=== PATIENT | male | born 1935 | race Caucasian/White ===

== ENCOUNTER 2016-11-19 18:57 | Inpatient (IN) | payer OTHER, MEDICARE, BC ==
[~2016-11-19 18:57] MED LIST: 1-ME1LIQ PO; ALBU6.7H INH; ASPI81TA82 PO; ATOR80TA41 PO; CEPH500T PO; DULE100A PO; FLUN25I; HUMALOGP SC; HYDR-2768 PO; LANTUS2P SC; LANTUSP SQ; LISI40TA PO; METO25TA6 PO; NITR.4 SL; OMEP20CA5 PO; XALA0.00 EACH EYE
[2016-11-19 18:59] VITALS: BP 135/69; PULSE 97; RESP 16; TEMP 98.8; O2SAT 96
--- NOTE | 2016-11-19 19:08 | PD ---
Physical Exam Date Seen by Provider: Nov 19, 2016 Time Seen by Provider: 19:07 Data Data Last Documented VS Vital Signs Date Time Temp Pulse Resp B/P Pulse Ox O2 Delivery O2 Flow Rate FiO2 11/19/16 18:59 98.8 97 16 135/69 96 Room Air [facility] Supervised Visit with PASCUAL: No Narrative Course 81 YO M with complaint of CP since ~7am. Took nitroglycerin x 3 1 hour ago with relief. HX of cardiac stent, "bad valve." Vitals reviewed. Awaiting bed placement. Dorothy Garcia Nov 19, 2016 19:08
[2016-11-19] MEDS ORDERED: ASPI-110 PO (19:29)
[2016-11-19] MEDS ORDERED: HUMALOG SQ (19:29)
[2016-11-19] MEDS ORDERED: NITR50VP (19:29)
[2016-11-19] MEDS ORDERED: LANTUS2P SQ ×2 (19:29)
[2016-11-19] MEDS ORDERED: LISI40TA PO (19:29)
[2016-11-19] MEDS ORDERED: ATOR1TAB18 PO (19:29)
[2016-11-19] MEDS ORDERED: OMEP20TA PO (19:29)
[2016-11-19] MEDS ORDERED: METO50TA PO (19:29)
[2016-11-19] MEDS ORDERED: AMLO10TA2 PO (19:29)
[2016-11-19 19:30] VITALS: BP 154/78; PULSE 97; RESP 16; O2SAT 96
[2016-11-19] MEDS ORDERED: ASPIRIN 325 MG TAB PO ONE (19:30)
[2016-11-19] MEDS ORDERED: SODIUM CHLORIDE 0.9% FLUSH 10 ML FLUSH IVF PRN (19:30)
[2016-11-19 19:31] VITALS: O2SAT 95
--- NOTE | 2016-11-19 19:37 | PD ---
HPI Chief Complaint: Chest Pain Time Seen by Provider: 19:09 Travel History International Travel<30 days: No Contact w/Intl Traveler<30days: No Traveled to known affect area: No History of Present Illness HPI 81yo M with PMH of CAD with stent s/p cardiac cath 2014, HTN, HLD, DM, Dementia presents to the ED with c/o chest pain since 8:30pm. Pt states it is left sided , intermittent, nonradiating. Associated with some sob. Pt currently has no chest pain. Denies any fever, cough, n/v, abdominal pain, focal weakness or numbness. Pt has dementia and is at baseline as per family. As per our records , pt had cardiac cath 10/2014 that showed severe aortic stenosis and multivessel disease. Pt was transferred to [facility] for possible TAVR versus CABG/AVR but the risk of anesthesia was too high with his dementia so no surgery was performed. Pt's handbag parts cutter is Dr. Leonard. Have not had a stress test in a long time. 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 aortic sclerosis, mild aortic valve stenosis) High Cholesterol: Yes Chemotherapy: No Chest Pain: Yes Congestive Heart Failure: No COPD: Yes Cerebrovascular Accident: No Coronary Artery Disease: Yes Dementia: Yes Diabetes: Yes (TYPE 2) Patient Takes Glucophage: No Diminished Hearing: No Endocrine: Yes Gastrointestinal Disorders: Yes GERD: Yes Glaucoma: No Genitourinary: Yes Headaches: Yes Hepatitis: No Hiatal Hernia: No Hypertension: Yes Immune Disorder: No Kidney Stones: Yes Medical other: Yes (arthritis anemia) Musculoskeletal: No Neurologic: Yes Psychiatric: No Reproductive: No Respiratory: Yes (copd and asthma) Immunizations Current: Yes (PT ALLERGIC TO TETANUS) Migraines: No Radiation Therapy: Yes Renal Failure: No Seizures: No Sickle Cell Disease: No Sleep Apnea: No Thyroid Disease: No Ulcer: No Tetanus Vaccination: Never Vaccinated Influenza Vaccination: No Past Surgical History Abdominal Surgery: Yes (appendectomy) AICD: No Appendectomy: Yes Arteriovenous Shunt: No Body Medical Devices: STENTS Cardiac Surgery: No Coronary Stent: Yes (x1) Ear Surgery: No Endocrine Surgery: No Eye Surgery: Yes (LENS IMPLANTS GREGORY) Genitourinary Surgery: Yes (EXC. PENILE ABSCESS, LITHOTRIPSY prostate bx) Gynecologic Surgery: No Insulin Pump: No Joint Replacement: No Oral Surgery: Yes Pacemaker: No Thoracic Surgery: No Tonsillectomy: Yes Other Surgery: Yes (HEMORRHOIDECTOMY) Social History Alcohol Use: No Tobacco Use: No (quit 20+ yrs ago smoked 1 ppd) Substance Use: No Allergies-Medications (Allergen,Severity, Reaction): Coded Allergies: Egg Allergy (Verified Allergy, Severe, 11/19/16) causes swelling at inj site when shot has egg diretive Tetanus Toxoid (Verified Allergy, Severe, 11/19/16) swelling due to egg deritive Yellow Dye #10 (Verified Allergy, Severe, 11/19/16) causes swelling Uncoded Allergies: Yellow Dye #3 and #4 (Allergy, Severe, 10/05/14) . Reported Meds & Prescriptions Reported Meds & Active Scripts Active Reported Lantus Inj (Insulin Glargine) 1,000 Unit/10 Ml Vial 40 Units SQ AC DINNER Lantus Inj (Insulin Glargine) 1,000 Unit/10 Ml Vial 32 Units SQ AC BREAKFAST Humalog Inj (Insulin Human Lispro) 1,000 Unit/10 Ml Vial 5 Units SQ TIDAC take 8 units morning and afternoon before breakfast and lunch and 12 units before dinner Nitroglycerin 5 Mg/Ml Inj Aspirin 81 (Aspirin) 81 Mg Tabdr 81 Mg PO HS Omeprazole 20 Mg Tab 20 Mg PO DAILY Lisinopril 40 Mg Tab 40 Mg PO DAILY Amlodipine (Amlodipine Besylate) 10 Mg Tab 10 Mg PO DAILY Metoprolol Tartrate 50 Mg Tab 50 Mg PO BID Atorvastatin (Atorvastatin Calcium) 80 Mg Tab 80 Mg PO HS Review of Systems Except as stated in HPI: all other systems reviewed are Neg Physical Exam Narrative GENERAL: 81yo M not in distress. SKIN: Focused skin assessment warm/dry. HEAD: Atraumatic. Normocephalic. EYES: Pupils equal and round. No scleral icterus. No injection or drainage. ENT: No nasal bleeding or discharge. Mucous membranes pink and moist. NECK: Trachea midline. No JVD. CARDIOVASCULAR: Regular rate and rhythm. +Systolic murmur appreciated. RESPIRATORY: No accessory muscle use. Clear to auscultation. Breath sounds equal bilaterally. GASTROINTESTINAL: Abdomen soft, non-tender, nondistended. No rebound tenderness or guarding. MUSCULOSKELETAL: No obvious deformities. No clubbing. No cyanosis. +Bilateral lower ext edema. NEUROLOGICAL: Awake and alert. No obvious cranial nerve deficits. Motor grossly within normal limits. Normal speech. PSYCHIATRIC: Appropriate mood and affect; insight and judgment normal. Data Data Last Documented VS Vital Signs Date Time Temp Pulse Resp B/P Pulse Ox O2 Delivery O2 Flow Rate FiO2 11/19/16 21:00 87 16 136/69 96 Room Air 11/19/16 19:31 2 11/19/16 18:59 98.8 Orders Basic Metabolic Panel (Bmp) (11/19/16 19:22) Ckmb (Isoenzyme) Profile (11/19/16 19:22) Complete Blood Count With Diff (11/19/16 19:22) Magnesium (Mg) (11/19/16 19:22) Prothrombin Time / Inr (Pt) (11/19/16 19:22) Act Partial Throm Time (Ptt) (11/19/16 19:22) Troponin I (11/19/16 19:22) Chest, Single Ap (11/19/16 19:22) Ecg Monitoring (11/19/16 19:22) Bilateral Bp Monitoring (11/19/16 19:22) Iv Access Insert/Monitor (11/19/16 19:22) Oximetry (11/19/16 19:22) Oxygen Administration (11/19/16 19:22) Aspirin (Aspirin) (11/19/16 19:30) Sodium Chloride 0.9% Flush (Ns Flush) (11/19/16 19:30) CKMB (11/19/16 19:25) CKMB% (11/19/16 19:25) Electromatic Typist / Telemetry MICHAEL.Q8H (11/19/16 20:35) Heparin Infusion MICHAEL.Q1H (11/19/16 20:35) Heparin Inj (Heparin Inj) (11/20/16 02:45) Heparin Inj (Heparin Inj) (11/20/16 02:45) Heparin-D5w Inj (Heparin-D5w Inj) (11/19/16 20:45) Cbc No Diff, Includes Plts (11/22/16 06:00) Act Partial Throm Time (Ptt) (11/20/16 03:35) Nitroglycerin 2% Oint (Nitroglycerin 2% (11/19/16 20:45) Potassium Chloride (Kcl) (11/19/16 20:45) Consult Cardiology (11/19/16 ) Admit Order (Ed Use Only) (11/19/16 20:59) Labs Laboratory Tests Test 11/19/16 19:25 White Blood Count 6.5 TH/MM3 Red Blood Count 3.84 MIL/MM3 Hemoglobin 10.7 GM/DL Hematocrit 31.9 % Mean Corpuscular Volume 83.1 FL Mean Corpuscular Hemoglobin 27.7 PG Mean Corpuscular Hemoglobin 33.4 % Concent Red Cell Distribution Width 15.4 % Platelet Count 124 TH/MM3 Mean Platelet Volume 9.9 FL Neutrophils (%) (Auto) 66.4 % Lymphocytes (%) (Auto) 21.0 % Monocytes (%) (Auto) 6.5 % Eosinophils (%) (Auto) 5.1 % Basophils (%) (Auto) 1.0 % Neutrophils # (Auto) 4.3 TH/MM3 Lymphocytes # (Auto) 1.4 TH/MM3 Monocytes # (Auto) 0.4 TH/MM3 Eosinophils # (Auto) 0.3 TH/MM3 Basophils # (Auto) 0.1 TH/MM3 CBC Comment DIFF FINAL Differential Comment Prothrombin Time 10.8 SEC Prothromb Time International 1.0 RATIO Ratio Activated Partial 27.8 SEC Thromboplast Time Sodium Level 143 MEQ/L Potassium Level 3.1 MEQ/L Chloride Level 107 MEQ/L Carbon Dioxide Level 23.7 MEQ/L Anion Gap 12 MEQ/L Blood Urea Nitrogen 23 MG/DL Creatinine 1.94 MG/DL Estimat Glomerular Filtration 33 ML/MIN Rate Random Glucose 170 MG/DL Calcium Level 8.5 MG/DL Magnesium Level 1.8 MG/DL Total Creatine Kinase 180 U/L Creatine Kinase MB 3.5 NG/ML Troponin I 0.97 NG/ML MDM Medical Decision Making Medical Screen Exam Complete: Yes Emergency Medical Condition: Yes Interpretation(s) EKG: NSR 89bpm. Normal axis. LVH. 1mm ST segment elevation in aVR and V1. ST depression in I, II, aVF, V3-V6. This is new from prior EKG. Differential Diagnosis NSTEMI vs. Unstable angina Narrative Course 81yo M with left sided chest pain that is intermittent. Currently no chest pain. Pt given aspirin 325mg PO. Labs reviewed, no leukocytosis. H/H low at 10.7/31.9. Hemaprompt negative. K: 3.1, replaced with PO 40mEq KCl. Troponin elevated at 0.97. Creatinine elevated at 1.94, this is at baseline. CXR negative. I discussed the case with addiction psychiatrist handbag parts cutter Dr. Morataya who recommends heparin and nitropaste. Will admit pt to [facility] for NSTEMI. Critical Care Narrative Aggregate critical care time was 60 minutes. Time to perform other separately billable procedures was not included in the critical care time. My time did not include minutes spent treating any other patients simultaneously or on activities that did not directly contribute to the patient's treatment. The services I provided to this patient were to treat and/or prevent clinically significant deterioration that could result in: cardiovascular collapse or . I provided critical care services requiring my management, as noted below: Chart data review, documentation time, medication orders and management, vital sign assessments/reviewing monitor data, ordering and reviewing lab tests, ordering and interpreting/reviewing x-rays and diagnostic studies, care of the patient and discussion of the patient with the admitting physicians. HemaPrompt Point of Care Internal Pos. & Neg. Controls: Passed Fecal Specimen Occult Blood: Negative Diagnosis Primary Impression: NSTEMI (non-ST elevated myocardial infarction) Admitting Information Admitting Physician Requests: Courtney Rolle DO Nov 19, 2016 19:37 Admitting Information Admitting Physician Requests: Courtney Rolle DO Nov 19, 2016 19:37
--- NOTE | 2016-11-19 19:48 | RADRPT ---
EXAM DATE/TIME: 11/19/2016 19:38 [facility] COMPARISON: CHEST PA & LAT, October 23, 2014, 10:50. INDICATIONS : Chest pain. MEDICAL HISTORY : None. SURGICAL HISTORY : Heart stent. ENCOUNTER: Initial ACUITY: 1 day PAIN SCORE: 5/10 LOCATION: Bilateral chest FINDINGS: A single view of the chest demonstrates the lungs to be symmetrically aerated without evidence of mas s, infiltrate or effusion. The cardiomediastinal contours are unremarkable. Osseous structures are intact. CONCLUSION: No acute disease. Don Chapin MD on November 19, 2016 at 19:45 Board Certified Radiologist. This report was verified electronically.
[2016-11-19 20:00] VITALS: BP 133/66; PULSE 83; RESP 16; O2SAT 95
[2016-11-19 20:01] LABS: AUTOMATED NEUTROPHIL # 4.3 TH/MM3 (1.8-7.7); BASOPHIL # 0.1 TH/MM3 (0-0.2); EOSINOPHIL # 0.3 TH/MM3 (0-0.4); EOSINOPHIL % 5.1 % (0.0-4.0); HEMATOCRIT 31.9 % (39.0-51.0); HEMO FLAGS DIFF FINAL; LYMPHOCYTE # 1.4 TH/MM3 (1.0-4.8); MEAN CELL VOLUME 83.1 FL (80.0-100.0); MEAN CORPUSCULAR HEMOGLOBIN 27.7 PG (27.0-34.0); MEAN CORPUSCULAR HGB CONC 33.4 % (32.0-36.0); MONO % 6.5 % (0.0-8.0); NEUT % 66.4 % (16.0-70.0); PLATELET COUNT 124 TH/MM3 (150-450); RED BLOOD COUNT 3.84 MIL/MM3 (4.50-5.90); RED CELL DISTRIBUTION WIDTH 15.4 % (11.6-17.2); WHITE BLOOD COUNT 6.5 TH/MM3 (4.0-11.0)
[2016-11-19 20:08] LABS: APTT (PATIENT) 27.8 SEC (24.3-30.1); PROTHROMBIN TIME - PATIENT 10.8 SEC (9.8-11.6)
[2016-11-19 20:23] LABS: ANION GAP 12 MEQ/L (5-15); BICARBONATE 23.7 MEQ/L (21.0-32.0); BLOOD UREA NITROGEN 23 MG/DL (7-18); CHLORIDE 107 MEQ/L (98-107); GLOMERULAR FILTRATION RATE 33 ML/MIN (>89); MAGNESIUM 1.8 MG/DL (1.5-2.5); POTASSIUM 3.1 MEQ/L (3.5-5.1); SODIUM (NA) 143 MEQ/L (136-145)
[2016-11-19 20:27] LABS: CREATINE KINASE 180 U/L (39-308)
[2016-11-19] MEDS ORDERED: NITROGLYCERIN 2% OINT 1 GM PACKET TOPICAL ONE (20:45)
[2016-11-19] MEDS ORDERED: HEPARIN-D5W INJ 250 ML IV SCH (20:45)
[2016-11-19] MEDS ORDERED: POTASSIUM CHLORIDE 20 MEQ CONTROLLED RELEASE TAB PO ONE (20:45)
[2016-11-19 20:49] LABS: CKMB 3.5 NG/ML (0.5-3.6)
[2016-11-19 21:00] VITALS: BP 136/69; PULSE 87; RESP 16; O2SAT 96
--- NOTE | 2016-11-19 21:14 | HHI.HP ---
HPI Service [facility] Primary Care Physician [facility] Admission Diagnosis NSTEMI Diagnoses: (1) NSTEMI (non-ST elevated myocardial infarction) Diagnosis: Principal (2) Thrombocytopenia Diagnosis: Principal (3) Renal insufficiency Diagnosis: Principal (4) Hypokalemia Diagnosis: Principal (5) DM (diabetes mellitus) Diagnosis: Principal (6) Dementia Diagnosis: Principal Travel History International Travel<30 Days: No Contact w/Intl Traveler <30 Da: No Traveled to Known Affected Are: No History of Present Illness This is an 81-year-old male with a PMH of HTN, Hyperlipidemia, Dementia, DM, CAD and who was brought to the ER by EMS secondary to complaints of chest pain. Pt w/ significant Dementia, seemingly at baseline per family, but able to relay c/o chest pain. Denies fever or chills, reports mild SOB only w/ episode of chest pain. Previous h/o CAD, follows w/ Dr. Leonard. Previous Cardiac Cath 10/2014 w/ multivessel disease and severe aortic stenosis, pt referred to [facility] for AVR and CABG, however not deemed to be surgical candidate in light of severe dementia and high risk. On arrival, BP 135/69, HR 97, O2 sat 96% on RA, Afebrile. CBC essentially baseline. Platelets 124, previously 92. Creatinine 1.94, previously 1.40 on 10/23/14. K+ 3.1. Trop 0.97 , EKG w/ no acute ischemia. Hemoccult negative on exam. CXR with no acute findings. Dr. Morataya consulted by ER physician, recommended Heparin gtt w/ consultation for Dr. Leonard in am. Pt currently chest pain free and without complaints. Review of Systems Except as stated in HPI: all other systems reviewed are Neg ROS: 14 point review of systems otherwise negative. Past Family Social History Past Medical History PMH: HTN, Hyperlipidemia, Dementia, DM, CAD and Past Surgical History PAST SURGICAL HISTORY: Appendectomy, Bilateral Lens Implants, Lithotripsy, Tonsillectomy, Hemorrhoidectomy Allergies: Coded Allergies: Egg Allergy (Verified Allergy, Severe, 11/19/16) causes swelling at inj site when shot has egg diretive Tetanus Toxoid (Verified Allergy, Severe, 11/19/16) swelling due to egg deritive Yellow Dye #10 (Verified Allergy, Severe, 11/19/16) causes swelling Uncoded Allergies: Yellow Dye #3 and #4 (Allergy, Severe, 10/05/14) . Family History PAST FAMILY HISTORY: Reviewed. No h/o DM or CAD Social History PAST SOCIAL HISTORY: Negative for alcohol, tobacco or drugs. Physical Exam Vital Signs Vital Signs Date Time Temp Pulse Resp B/P Pulse Ox O2 Delivery O2 Flow Rate FiO2 11/19/16 19:31 95 Room Air 11/19/16 19:31 Nasal Cannula 2 11/19/16 19:11 104 20 95 11/19/16 18:59 98.8 97 16 135/69 96 Room Air Physical Exam PE: GENERAL: Pleasantly demented elderly white male in no acute distress. and son at bedside. HEENT: PERRLA, EOMI. No scleral icterus or conjunctival pallor. No lid lag or facial droop. CARDIOVASCULAR: Regular rate and rhythm. No obvious murmurs to auscultation. No chest tenderness to palpation. RESPIRATORY: No obvious rhonchi or wheezing. Clear to auscultation. Breath sounds equal bilaterally. GASTROINTESTINAL: Abdomen soft, non-tender, nondistended. BS normal. MUSCULOSKELETAL: Extremities without clubbing, cyanosis, or edema. No obvious deformities. NEUROLOGICAL: Awake, alert and oriented, but confused, tangential, seemingly at baseline per family. No focal neurologic deficits. Moving both upper and lower extremities spontaneously. Laboratory Laboratory Tests Test 11/19/16 19:25 White Blood Count 6.5 Red Blood Count 3.84 Hemoglobin 10.7 Hematocrit 31.9 Mean Corpuscular Volume 83.1 Mean Corpuscular Hemoglobin 27.7 Mean Corpuscular Hemoglobin 33.4 Concent Red Cell Distribution Width 15.4 Platelet Count 124 Mean Platelet Volume 9.9 Neutrophils (%) (Auto) 66.4 Lymphocytes (%) (Auto) 21.0 Monocytes (%) (Auto) 6.5 Eosinophils (%) (Auto) 5.1 Basophils (%) (Auto) 1.0 Neutrophils # (Auto) 4.3 Lymphocytes # (Auto) 1.4 Monocytes # (Auto) 0.4 Eosinophils # (Auto) 0.3 Basophils # (Auto) 0.1 CBC Comment DIFF FINAL Differential Comment Prothrombin Time 10.8 Prothromb Time International 1.0 Ratio Activated Partial 27.8 Thromboplast Time Sodium Level 143 Potassium Level 3.1 Chloride Level 107 Carbon Dioxide Level 23.7 Anion Gap 12 Blood Urea Nitrogen 23 Creatinine 1.94 Estimat Glomerular Filtration 33 Rate Random Glucose 170 Calcium Level 8.5 Magnesium Level 1.8 Total Creatine Kinase 180 Creatine Kinase MB 3.5 Troponin I 0.97 Result Diagram: 11/19/16192411/19/161924 Assessment and Plan Problem List: (1) NSTEMI (non-ST elevated myocardial infarction) ICD Code: I21.4 Status: Acute (2) Hypokalemia ICD Code: E87.6 Status: Acute (3) Renal insufficiency ICD Code: N28.9 Status: Acute (4) Thrombocytopenia ICD Code: D69.6 Status: Acute (5) Dementia ICD Code: F03.90 Status: Acute (6) DM (diabetes mellitus) ICD Code: E11.9 Status: Acute Assessment and Plan A/P: 1. NSTEMI: Trop 0.97, EKG w/ no acute ischemia. H/o CAD, previous Cath 2014 w/ multivessel disease and severe , referred to [facility] however pt not surgical candidate due to high risk and severe dementia, condition unchanged, pt remains poor surgical candidate. Dr. Morataya consulted by ER physician, recommended Heparin gtt and consultation for Dr. Leonard in am. Admit to [facility], continue Heparin gtt, caution w/ thrombocytopenia however Hemoccult negative, check serial cardiac enzymes for trend, NTG/Morphine prn if needed. Resume home ASA, Metoprolol and Statin. 2. Hypokalemia: K+ 3.1, s/p replacement in ER. Will recheck and replace as needed. 3. Renal Insufficiency: Acute on Chronic. Creatinine 1.94, previously 1.40 on 10/23/14. IVF for hydration, hold Lisinopril, repeat labs in am. 4. Thrombocytopenia: Chronic. Platelets 124, previously 92 on 10/23/14, no active bleeding, Hemoccult negative, will monitor closely in light of Heparin gtt. Repeat labs in am. 5. Dementia: At baseline per family. Ativan prn for agitation if needed 6. DM: Sliding scale w/ Accu-Cheks, resume home Insulin. 7. DVT Prophylaxis: On Heparin gtt 8. Social work for d/c planning as needed. 9. Case discussed w/ ER physician at length Physician Certification 2 Midnight Certification Type: Admission for Inpatient Services Order for Inpatient Services The services are ordered in accordance with Medicare regulations or non- Medicare payer requirements, as applicable. In the case of services not specified as inpatient-only, they are appropriately provided as inpatient services in accordance with the 2-midnight benchmark. Estimated LOS (days): 2 days is the estimated time the patient will need to remain in the hospital, assuming treatment plan goals are met and no additional complications. Post-Hospital Plan: Not yet determined Lisa Pearce MD Nov 19, 2016 21:14
[2016-11-19] MEDS ORDERED: DEXTROSE 50% IN WATER 50 ML VIAL(D50) IV PRN (21:15)
[2016-11-19] MEDS ORDERED: GLUCAGON 1 MG/ML VIAL OTHER PRN (21:15)
[2016-11-19] MEDS ORDERED: MORPHINE SULFATE 4 MG/ML INJ IV PRN (21:15)
[2016-11-19] MEDS ORDERED: ACETAMINOPHEN 325 MG TAB PO PRN (21:15)
[2016-11-19] MEDS ORDERED: BISACODYL 10 MG SUPP RECTAL PRN (21:15)
[2016-11-19] MEDS ORDERED: SODIUM CHLORIDE 0.9% FLUSH 10 ML FLUSH IV FLUSH PRN (21:15)
[2016-11-19] MEDS ORDERED: MAGNESIUM HYDROXIDE SUSP 30 ML CUP PO PRN (21:15)
[2016-11-19] MEDS ORDERED: SENNOSIDES 8.6 MG TAB PO PRN (21:15)
[2016-11-19] MEDS ORDERED: LACTULOSE SYRUP 20 GM/30 ML CUP PO PRN (21:15)
[2016-11-19] MEDS ORDERED: ONDANSETRON HCL 4 MG/2 ML VIAL IVP PRN (21:15)
[2016-11-19] MEDS ORDERED: ACETAMINOPHEN/HYDROcodone 325 MG/5 MG TAB PO PRN (21:15)
[2016-11-19] MEDS ORDERED: NITROGLYCERIN 2% OINT 1 GM PACKET TOPICAL PRN (21:15)
[2016-11-19 22:00] VITALS: BP 128/93; PULSE 95; RESP 16; O2SAT 96
[2016-11-20] VITALS (19 sets, daily range): BP systolic 125–175; BP diastolic 74–92; PULSE 78–112; RESP 16–20; TEMP 97.4–98.8; O2SAT 92–99
[2016-11-20 01:30] LABS: ALT (GPT) 16 U/L (12-78); ANION GAP 9 MEQ/L (5-15); AST (GOT) 19 U/L (15-37); BICARBONATE 26.3 MEQ/L (21.0-32.0); BLOOD UREA NITROGEN 22 MG/DL (7-18); CHLORIDE 110 MEQ/L (98-107); GLOMERULAR FILTRATION RATE 35 ML/MIN (>89); POTASSIUM 3.3 MEQ/L (3.5-5.1); SODIUM (NA) 145 MEQ/L (136-145)
[2016-11-20 01:34] LABS: ALKALINE PHOSPHATASE 65 U/L (45-117); TOTAL BILIRUBIN ADULT 0.4 MG/DL (0.2-1.0)
[2016-11-20] MEDS ORDERED: HEPARIN SODIUM - IV 10,000 UNITS/10 ML VIAL IV PRN ×2 (02:45)
[2016-11-20 04:07] LABS: AUTOMATED NEUTROPHIL # 3.5 TH/MM3 (1.8-7.7); BASOPHIL # 0.1 TH/MM3 (0-0.2); BASOPHIL % 0.9 % (0.0-2.0); EOSINOPHIL # 0.4 TH/MM3 (0-0.4); EOSINOPHIL % 6.5 % (0.0-4.0); HEMATOCRIT 30.8 % (39.0-51.0); HEMO FLAGS DIFF FINAL; LYMPH % 24.6 % (9.0-44.0); LYMPHOCYTE # 1.4 TH/MM3 (1.0-4.8); MEAN CELL VOLUME 83.1 FL (80.0-100.0); MEAN CORPUSCULAR HEMOGLOBIN 27.2 PG (27.0-34.0); MEAN CORPUSCULAR HGB CONC 32.7 % (32.0-36.0); MONO % 7.5 % (0.0-8.0); NEUT % 60.5 % (16.0-70.0); PLATELET COUNT 111 TH/MM3 (150-450); RED BLOOD COUNT 3.71 MIL/MM3 (4.50-5.90); RED CELL DISTRIBUTION WIDTH 15.6 % (11.6-17.2); WHITE BLOOD COUNT 5.8 TH/MM3 (4.0-11.0)
[2016-11-20] MEDS: INSULIN ASPART SUPPLEMENTAL SCALE SQ SCH ×4 (07:00→21:00)
[2016-11-20] MEDS: INSULIN DETEMIR 100 UNITS/ML VIAL SQ SCH (07:00)
--- NOTE | 2016-11-20 07:46 | PD.CONS ---
HPI Service CV Consult Requested By Reason for Consult NSTEMI Primary Care Physician [facility] History of Present Illness Here HTN, Hyperlipidemia, Dementia, DM, CAD and for chest pain. Pt w/ significant dementia. [place] multiple episodes of chest pain. It is associated with shortness of breath . Previous Cardiac Cath 10/2014 w/ multivessel disease and severe aortic stenosis. He was referred to [facility] and deemed not a surgical candidate due to dementia. (Juan David Rivera) Review of Systems Consitutional: DENIES: Fatigue, Fever, Chills, Weight gain, Weight loss Eyes: DENIES: Amaurosis Fugax, Change in vision HEENT: DENIES: Lightheadedness, Change in hearing Respiratory: DENIES: See HPI, Cough, Snoring, Shortness of breath, Wheezing, Sputum production Cardiovascular: COMPLAINS OF: See HPI Gastrointestinal: DENIES: Nausea, Vomiting, Change in bowel habits, Reflux, Bloody stools, Melena Genitourinary: DENIES: Urinary incontinence, Difficulty voiding Integumentary: DENIES: Rash Neurologic: DENIES: Tingling or numbness, Memory problems, Poor Balance, Stroke symptoms Musculoskeletal: DENIES: Joint pain, Muscle pain, Limited range of motion, Back pain Psychiatric: DENIES: Anxiety, Depression, Sleep disturbances Hematologic: DENIES: Bruising tendencies, Bleeding tendencies Endocrine: DENIES: Weight gain, Weight loss, Thyroid disease (Juan David Rivera ) Past Family Social History Allergies: Coded Allergies: Egg Allergy (Verified Allergy, Severe, 11/19/16) causes swelling at inj site when shot has egg diretive Tetanus Toxoid (Verified Allergy, Severe, 11/19/16) swelling due to egg deritive Yellow Dye #10 (Verified Allergy, Severe, 11/19/16) causes swelling Uncoded Allergies: Yellow Dye #3 and #4 (Allergy, Severe, 10/05/14) . Past Medical History see HPI Past Surgical History Appendectomy Bilateral Lens Implants Lithotripsy, Tonsillectomy Hemorrhoidectomy Reported Medications Reported Meds & Active Scripts Active Reported Lantus Inj (Insulin Glargine) 1,000 Unit/10 Ml Vial 40 Units SQ AC DINNER Lantus Inj (Insulin Glargine) 1,000 Unit/10 Ml Vial 32 Units SQ AC BREAKFAST Humalog Inj (Insulin Human Lispro) 1,000 Unit/10 Ml Vial 5 Units SQ TIDAC take 8 units morning and afternoon before breakfast and lunch and 12 units before dinner Nitroglycerin 5 Mg/Ml Inj Aspirin 81 (Aspirin) 81 Mg Tabdr 81 Mg PO HS Omeprazole 20 Mg Tab 20 Mg PO DAILY Lisinopril 40 Mg Tab 40 Mg PO DAILY Amlodipine (Amlodipine Besylate) 10 Mg Tab 10 Mg PO DAILY Metoprolol Tartrate 50 Mg Tab 50 Mg PO BID Atorvastatin (Atorvastatin Calcium) 80 Mg Tab 80 Mg PO HS Active Ordered Medications Current Medications Medications (Trade) Dose Ordered Sig/Saundra Route Start Time Stop Time Status Last Admin (Heparin Inj) 5,000 units UNSCH PRN IV 11/20/16 02:45 Heparin Sodium (Porcine) 2500 units 2,500 units UNSCH PRN IV 11/20/16 02:45 (Heparin-D5W Inj) 250 ml @ 0 mls/hr TITRATE IV 11/19/16 20:45 11/19/16 21:26 (Nitroglycerin 2% Oint) 0.5 inch Q6HR PRN TOPICAL 11/19/16 21:15 (D50w (Vial) Inj) 50 ml UNSCH PRN IV 11/19/16 21:15 (Glucagon Inj) 1 mg UNSCH PRN OTHER 11/19/16 21:15 (NS Flush) 2 ml UNSCH PRN IV FLUSH 11/19/16 21:15 (NS Flush) 2 ml BID IV FLUSH 11/20/16 09:00 (Zofran Inj) 4 mg Q6H PRN IVP 11/19/16 21:15 (Tylenol) 650 mg Q6H PRN PO 11/19/16 21:15 (Wallace 5-325 Mg) 1 tab Q4H PRN PO 11/19/16 21:15 (Morphine Inj) 2 mg Q3H PRN IV 11/19/16 21:15 (Jessica-Colace) 1 tab BID PO 11/20/16 09:00 (Milk Of Magnesia Liq) 30 ml Q12H PRN PO 11/19/16 21:15 (Senokot) 17.2 mg Q12H PRN PO 11/19/16 21:15 (Dulcolax Supp) 10 mg DAILY PRN RECTAL 11/19/16 21:15 (Lactulose Liq) 30 ml DAILY PRN PO 11/19/16 21:15 (Norvasc) 10 mg DAILY PO 11/20/16 09:00 (Ecotrin Ec) 81 mg HS PO 11/20/16 21:00 (Lipitor) 80 mg HS PO 11/20/16 21:00 (Lopressor) 50 mg BID PO 11/20/16 09:00 (Protonix) 20 mg DAILY PO 11/20/16 09:00 Family History noncontributory Social History denies smoking, alcohol or substance abuse (Juan David Rivera) Physical Exam Vital Signs Vital Signs Date Time Temp Pulse Resp B/P Pulse Ox O2 Delivery O2 Flow Rate FiO2 11/20/16 04:23 98.7 94 16 125/81 94 11/20/16 03:00 91 11/20/16 01:47 98.6 94 16 131/90 92 11/20/16 01:00 98.8 94 16 139/85 95 11/19/16 22:00 95 16 128/93 96 Room Air 11/19/16 21:00 87 16 136/69 96 Room Air 11/19/16 20:00 83 16 133/66 95 Room Air 11/19/16 19:31 95 Room Air 11/19/16 19:31 Nasal Cannula 2 11/19/16 19:30 97 16 154/78 96 Room Air 11/19/16 19:11 104 20 95 11/19/16 18:59 98.8 97 16 135/69 96 Room Air Physical Exam GENERAL: Well-nourished, well-developed patient in no apparent distress. NECK: No JVD. No carotid bruit. CARDIOVASCULAR: Regular rate and rhythm. S1/S2 No rub, or gallop. II/ JUAN LSB RESPIRATORY: No accessory muscle use. Clear to auscultation. Breath sounds equal bilaterally. GASTROINTESTINAL: Abdomen soft, non-tender, nondistended. MUSCULOSKELETAL: Extremities without clubbing, cyanosis, or edema. Laboratory Laboratory Tests Test 11/19/16 11/20/16 11/20/16 19:25 00:55 03:15 White Blood Count 6.5 5.8 Red Blood Count 3.84 3.71 Hemoglobin 10.7 10.1 Hematocrit 31.9 30.8 Mean Corpuscular Volume 83.1 83.1 Mean Corpuscular Hemoglobin 27.7 27.2 Mean Corpuscular Hemoglobin 33.4 32.7 Concent Red Cell Distribution Width 15.4 15.6 Platelet Count 124 111 Mean Platelet Volume 9.9 10.5 Neutrophils (%) (Auto) 66.4 60.5 Lymphocytes (%) (Auto) 21.0 24.6 Monocytes (%) (Auto) 6.5 7.5 Eosinophils (%) (Auto) 5.1 6.5 Basophils (%) (Auto) 1.0 0.9 Neutrophils # (Auto) 4.3 3.5 Lymphocytes # (Auto) 1.4 1.4 Monocytes # (Auto) 0.4 0.4 Eosinophils # (Auto) 0.3 0.4 Basophils # (Auto) 0.1 0.1 CBC Comment DIFF FINAL DIFF FINAL Differential Comment Prothrombin Time 10.8 Prothromb Time International 1.0 Ratio Activated Partial 27.8 41.0 Thromboplast Time Sodium Level 143 145 Potassium Level 3.1 3.3 Chloride Level 107 110 Carbon Dioxide Level 23.7 26.3 Anion Gap 12 9 Blood Urea Nitrogen 23 22 Creatinine 1.94 1.84 Estimat Glomerular Filtration 33 35 Rate Random Glucose 170 155 Calcium Level 8.5 8.8 Magnesium Level 1.8 Total Creatine Kinase 180 Creatine Kinase MB 3.5 Troponin I 0.97 0.76 Total Bilirubin 0.4 Aspartate Amino Transf 19 (AST/SGOT) Alanine Aminotransferase 16 (ALT/SGPT) Alkaline Phosphatase 65 Total Protein 6.6 Albumin 3.0 (Juan David Rivera) Result Diagram: 11/20/16 0315 11/20/16 0055 Assessment and Plan Problem List: (1) NSTEMI (non-ST elevated myocardial infarction) (2) Aortic stenosis (3) CAD (coronary artery disease) Assessment and Plan With his multiple comorbidities he is not a good candidate for mechanical intervention. Medical management with long acting nitrates would be preferred. PVC Couplets and triplets - increase metoprolol to 75 mg BID (Juan David Rivera ) Assessment and Plan reviewed 2015 films + LAD and OM1 stenosis. + NSTEMI, EKG changes, and + symptoms - repeat 2d echo FEV1 1.0. discussed case at length with daughter. they are not interested in addressing the aortic valve at this time. She would like to proceed with [facility] and possible intervention. IVF. NPO (Elan Morataya MD) Juan David Rivera Nov 20, 2016 07:46 Elan Morataya MD Nov 20, 2016 10:57
[2016-11-20] MEDS ORDERED: PILL SPLITTER OTHER PRN (09:00)
[2016-11-20] MEDS: SODIUM CHLORIDE 0.9% FLUSH 10 ML FLUSH IV FLUSH SCH ×2 (09:00→20:11)
[2016-11-20] MEDS ORDERED: METOPROLOL TARTRATE 50 MG TAB PO SCH (09:00)
[2016-11-20] MEDS ORDERED: SODIUM CHLOR 0.9% 1000 ML INJ 1,000 ML IV SCH ×3 (10:00→18:30)
[2016-11-20 10:13] LABS: APTT (PATIENT) 51.9 SEC (24.3-30.1)
[2016-11-20] MEDS: PANTOPRAZOLE SOD 20 MG DELAYED RELEASE TAB PO SCH (10:22)
[2016-11-20] MEDS: DOCUSATE SODIUM 50 MG/SENNA 8.6 MG TAB PO SCH ×2 (10:23→20:10)
[2016-11-20] MEDS: METOPROLOL TARTRATE 50 MG TAB PO SCH ×2 (10:23→20:10)
[2016-11-20] MEDS ORDERED: HEPARIN-NS/PF INJ 500 ML ONE (11:35)
[2016-11-20] MEDS ORDERED: NITROGLYCERIN INJ 5 ML ONE (11:35)
[2016-11-20] MEDS ORDERED: HEPARIN SODIUM - IV 10,000 UNITS/10 ML VIAL ONE (11:35)
[2016-11-20] MEDS ORDERED: BIVALIRUDIN 250 MG VIAL ONE (12:19)
[2016-11-20] MEDS ORDERED: BIVALIRUDIN INJ 250 MG in SODIUM CHLORIDE 0.9% INJ 50 ML IV SCH (12:39)
[2016-11-20] MEDS ORDERED: CLOPIDOGREL 300 MG TAB ONE (12:40)
[2016-11-20] MEDS ORDERED: MISC INFORMATION XX ONE (12:45)
[2016-11-20] MEDS ORDERED: BACITRACIN OINT 0.9 GM PKT TOP ONE (12:45)
[2016-11-20] MEDS ORDERED: CLOPIDOGREL 300 MG TAB PO ONE (12:45)
[2016-11-20] MEDS ORDERED: LIDOCAINE 2% JELLY 30 ML TUBE TOP PRN (12:45)
--- NOTE | 2016-11-20 12:53 | ECHRPT ---
Indication: Chest pain, unspecified CONCLUSIONS Mild concentric left ventricular hypertrophy. The left ventricular systolic function is low normal with an estimated ejection fraction in the rang e of 50- 55%. Mild mitral valve regurgitation. Mitral annular calcification is present. Diffuse calcification of the aortic valve. Severe aortic valve stenosis. Aortic valve area is 0.64 cm. Aortic valve mean gradient is 46 mmHg . There is mild tricuspid valve regurgitation. There is estimated mild pulmonary hypertension present (range 40-50 mmHg). BP: 135 / 69 HR: 97 Rhythm: Sinus MEASUREMENTS (Male / Female) Normal Values Technical Quality:Technically difficult study 2D ECHO LV Diastolic Diameter PLAX 4.4 cm 4.2 - 5.9 / 3.9 - 5.3 cm LV Systolic Diameter PLAX 3.4 cm IVS Diastolic Thickness 1.6 cm 0.6 - 1.0 / 0.6 - 0.9 cm LVPW Diastolic Thickness 1.1 cm 0.6 - 1.0 / 0.6 - 0.9 cm LV Relative Wall Thickness 0.6 RV Internal Dim ED PLAX 2.3 cm LVOT Diameter 2.2 cm M-MODE Aortic Root Diameter MM 3.0 cm LA Systolic Diameter MM 3.8 cm LA Ao Ratio MM 1.3 DOPPLER AV Peak Velocity 437.8 cm/s AV Peak Gradient 76.7 mmHg AV Mean Gradient 46.0 mmHg AV Velocity Time Integral 94.1 cm LVOT Peak Velocity 79.0 cm/s LVOT Peak Gradient 2.5 mmHg LVOT Velocity Time Integral 15.9 cm AV Area Cont Eq vti 0.6 cm AV Area Cont Eq pk 0.7 cm TR Peak Velocity 271.0 cm/s TR Peak Gradient 29.4 mmHg FINDINGS LEFT VENTRICLE Mild concentric left ventricular hypertrophy. The left ventricular systolic function is low normal with an estimated ejection fraction in the rang e of 50- 55%. RIGHT VENTRICLE Normal right ventricular size and systolic function. LEFT ATRIUM The left atrial size is normal. RIGHT ATRIUM The right atrial size is normal. ATRIAL SEPTUM Normal atrial septal thickness without atrial level shunting by limited color doppler interrogation. AORTA The aortic root and proximal ascending aorta are normal in size on limited imaging. MITRAL VALVE Structurally normal mitral valve. Calcification of both mitral valve leaflets. Mild mitral valve regurgitation. Mitral annular calcification is present. AORTIC VALVE The aortic valve is not well visualized. Mild thickening of the aortic valve leaflets. Diffuse calcification of the aortic valve. Severe aortic valve stenosis. Aortic valve area is 0.64 cm. Aortic valve mean gradient is 46 mmHg . TRICUSPID VALVE There is mild tricuspid valve regurgitation. There is estimated mild pulmonary hypertension present (range 40-50 mmHg). VESSELS The inferior vena cava is normal in size. PERICARDIUM No pericardial effusion. Elan Morataya MD, FACC (Electronically Signed) Final Date:20 November 2016 12:52
--- NOTE | 2016-11-20 12:58 | CATHPROC ---
Socitive HIS Report Study Information Study Number Admission Scheduled Start Study Start [id number] Nov 19 2016 9:03PM 11/20/2016 Nov 20 2016 11:24AM [facility] Catheterization Admit Source Facility Department Other [facility] - Bulk Mail Technician Physician and Clinical Staff Initial Elan Corcoran RN, Kalia Recorder Rakesh Mccauley RCIS(BS) Amanda Alvarez RCIS TECH2 Procedures Performed Procedure Location (Site) Vessel Name Coronary Angiograms LCA Left Coronary Coronary Angiograms RCA Right Coronary Drug Eluting Inflatio LAD Prox Left Coronary Drug Eluting Inflatio OM1 Mid CIRC L Heart Cath Wire insertion Radial (right) Radial Art. Equipment Time Chisel Worker Description Size Mfg Part Number Used/Scraped COPILOT VALVE, BLEEDBACK [id number] 12:12 [employer] Used CONTROL *[id number] TRANSDUCER, TRUWAVE [id number] 11:46 [employer] DEAN * Used W/STOCKCOCK *[id number] *[id number] *[id number] *[id number] 11:46 [employer] INDUSTRIES PACK, CCL CUSTOM * Used *[id number] 11:46 [employer] SUPPORT, ARTERIAL ADULT 59812 Used [id number] 11:46 [employer] PACER PEN, SKIN DUAL W/ RULER * Used *[id number] STENT, 2.5 30 RESOLUTE [id number] 12:31 [employer] 2.5 30 Used INTEGRITY RX *[id number] STENT, 2.75 22 RESOLUTE [id number] 12:26 [employer] 2.75 22 Used INTEGRITY RX *[id number] 12:26 [employer] 30 DHARA INDEFLATOR Used *[id number] BAND, RADIAL COMPRESSION TR [id number] 12:38 [employer] 29CM Used LARGE 29 *[id number] SHEATH, FR6 RADIAL PRELUDE 11:46 [employer] FR 6 [id number] Used EASE 11CM [id number] 11:46 [employer] WIRE, EXCHANGE 260CM 3MMJ 260CM Used *[id number] 11:46 [employer] OMNIPAQUE, 350 MG, 150ML 150ML [id number] Used [id number] 11:46 [employer],WARM AIR CCL * Used *[id number] WIRE, RUNTHROUGH NS FLOPPY [id number] 12:27 [employer] 180CM Used .014 180CM *[id number] Equipment Model, Serial, Lot Number and Expiration Data Description Model Number Serial Number Lot Number Expiration Date STENT, 2.5 30 RESOLUTE [id number] 09-07-2018 INTEGRITY RX STENT, 2.75 22 RESOLUTE [id number] 08-20-2018 [employer]TEGRITY RX History: Current Medications Medication Dosage/Unit Route Frequency Last Date/Time Taken ASA Beta Rosalie Statins (any) History: Allergies Allergy Reaction Egg Allergy Tetanus Toxoid Yellow Dye #10 Yellow Dye #3 and #4 History: Risk Factors Family History of Hypertension Dyslipidemia Previous [place] Previous Heart Failure Premature CAD Yes Yes No No No Prior Valve Prior PCI Prior CABG Surgery No No No Cerebrovascular Peripheral Artery Chronic Lung On Dialysis Diabetes Diabetes Therapy Disease Disease Disease No No No No Yes Insulin History: Symptoms/Diagnosis Selection Items Chest pain History: Stress Tests Stress or Imaging Studies Performed No History: Other Current Smoker No Labs Hgb (g/dl) Hct (%) WBC (l/cumm) Platelets (thousands) 12.00-18.00 37.00-55.00 4.80-10.80 140.00-450.00 10.1 30.8 5.8 111 Glucose (mg/dl) BUN (mg/dl) Creatinine (mg/dl) BUN:Creatinine (1:x) 60.00-110.00 8.00-20.00 0.10-9.00 10.00-20.00 155 22 1.8 12.2 Na (meq/l) K (meq/l) 138.00-146.00 3.80-5.10 145 3.3 INR (PTT:PT) 0.50-2.00 1 Troponin I (ng/ml) CPK-MB (ng/ML) 0.40-2.30 0.00-7.00 0.5 Not Drawn Medication Medication Total Dose (Bolus/Oral) Medication Total Dosage/Unit 1% XYLOCAINE 10 mL ANGIOMAX BOLUS 10.5 mL FENTANYL 50 mcg HEPARIN 4000 units PLAVIX 600 mg RADIAL COCKTAIL 5 mL (Bolus) Medications (Bolus/Oral) Medication Time Given Dosage/Unit Administered By Reason 1% XYLOCAINE 11/20/2016 12:03:33 PM 10 mL Elan Morataya 10 mL 1% XYLOCAINE given in lab by Elan Morataya in Right Radial via Subcutaneous. Ordered by Elan Morataya. FENTANYL 11/20/2016 12:03:46 PM 25 mcg Kalia Edwards RN 25 mcg FENTANYL given in lab by Kalia Edwards RN in Right Antecubital via Peripheral IV. Ordered by Elan Haro. HEPARIN 11/20/2016 12:05:11 PM 4000 units Kalia Edwards RN 4000 units HEPARIN given in lab by Kalia Edwards RN in Right Antecubital via Peripheral IV. Ordered by Elan Morataya. Ntg 200mcg Verapamil 2.5mg Heparin RADIAL COCKTAIL 11/20/2016 12:05:26 PM 5 mL (Bolus) Kalia Edwards RN 2000U 5 mL (Bolus) RADIAL COCKTAIL given in lab by Kalia Edwards RN in Right Radial via Radial. Using [Solut ion Name]. Ordered by Elan Morataya. Reason: Ntg 200mcg. ANGIOMAX BOLUS 11/20/2016 12:21:09 PM 10.5 mL Kalia Edwards RN 10.5 mL ANGIOMAX BOLUS given in lab by Kalia Edwards RN in Right Antecubital via Peripheral IV. Ordere d by Elan Morataya. FENTANYL 11/20/2016 12:24:32 PM 25 mcg Kalia Edwards RN 25 mcg FENTANYL given in lab by Kalia Edwards RN in Right Antecubital via Peripheral IV. Ordered by Elan Haro. PLAVIX 11/20/2016 12:43:09 PM 600 mg Kalia Edwards RN 600 mg PLAVIX given in lab by Kalia Edwards RN via Oral. Ordered by Elan Morataya. Medication (Drip) Medication Time Given Dosage/Unit Concentration/Unit Diluent (ml) Solution ANGIOMAX DRIP 11/20/2016 12:23:31 PM 1.75 mg/kg/hr 250 mg 50 NaCl .9 1.75 mg/kg/hr ANGIOMAX DRIP given in lab by Kalia Edwards RN in Right Antecubital via Peripheral IV. P ump/Drip Flow = 24.5 ml/hr using NaCl .9 with a concentration of 250 mg in 50 ml. Ordered by Elan Morataya. IV Solutions 11/20/2016 11:30:23 AM 0 mL (IV) 500 NaCl .9 Patient arrived on IV Solutions in Right Antecubital via Peripheral IV. Pump/Drip Flow = 20 ml/hr usi ng NaCl .9. Ordered by Elan Morataya. Initial Case Assessment Cardiovascular HR Rhythm NIBP Chest Pain 80 SR 151/90 0 Edema Present Skin color Skin None Normal Warm Dry Circulatory - Right Pulses Dorsalis Pedis Femoral Radial 2 2 2 Scale (0,1,2,3,4,d) Circulatory - Left Pulses Dorsalis Pedis Femoral Radial 2 2 Scale (0,1,2,3,4,d) Circulatory - Lower Extremities Color Lower Right Color Lower Left Normal Normal Neurological State Oriented to time-place- Alert Moves all extremities person Respiration - General Respiration Rate SpO2 (%) (B/min) 13 94 Final Case Assessment Cardiovascular HR Rhythm NIBP Chest Pain 85 SR 133/78 0 Edema Present Skin color Skin None Normal Warm Dry Circulatory - Right Pulses Dorsalis Pedis Femoral Radial 2 2 2 Scale (0,1,2,3,4,d) Circulatory - Left Pulses Dorsalis Pedis Femoral Radial 2 2 Scale (0,1,2,3,4,d) Neurological State Oriented to time-place- Alert Moves all extremities person Respiration - General Respiration Rate SpO2 (%) O2 (lpm) (B/min) 18 99 0 Chronological Log Time Study Chronological Log 11:29:57 Patient arrived via Bed. 11:29:58 Patient Name, D.O.B, / Armband Verified By R.N. 11:29:58 Consent signed by the physician and the patient and verified by the Bulk Mail Technician staff. 11:29:59 Pre-op and post- op instructions given; patient acknowledges understanding of instructions. 11:30:07 Verbal Stimulation=2 Physical Stimulation=2 Airway=2 Respiration=2 TOTAL=8. (0=absent, 1=li mited, 2=present) 11:30:08 Allens test performed on the right radial and ulnar artery. 11:30:14 Patient has been NPO for Less than 6Hrs. 11:30:16 Skin Breakdown- 11:30:18 Patient Warmer Placed on the Table. 11:30:22 A # 20 IV was noted in the Antecubital (right). Grade = 0 Patient arrived on IV Solutions in Right Antecubital via Peripheral IV. Pump/Drip Flow = 20 ml/ hr using NaCl .9. Ordered 11:30:23 by Elan Morataya. 11:30:24 History and physical on the chart or being dictated. Assessment: Initial Case, HR=80 BPM, Rhythm=SR, BBTI=845/90 mmhg, Chest Pain=0, Edema=None, Col or=Normal, Skin = Warm, Dry Right Pulses: Matt Ped=2, Femoral=2, Radial=2 Left Pulses: Matt Ped=2, Femoral=2 11:30:25 Lower Right Extremities: Color=Normal Lower Left Extremities: Color=Normal Neurological: State=Alert, Ox3, GOETZ Respiration: Resp=13 B/min, SpO2=94 % Vitals capture started with the following parameters, Patient=Adult, Interval=5 min, Initial Pr algxgn=572 mmHg, 11:32:36 Deflation Rate=5 mmHg 11:33:14 HR=80 bpm, FPKL=751/91 mmhg, SpO2=96.0 %, Pain=0, Hasmukh=10, Strickland=2 11:38:18 HR=81 bpm, VFGQ=409/83 mmhg, SpO2=95.0 %, Resp=15 B/min, Pain=0, Hasmukh=10, Strickland=2 11:43:19 HR=80 bpm, XTCQ=285/84 mmhg, SpO2=94.0 %, Resp=13 B/min, Pain=0, Hasmukh=10, Strickland=2 11:43:54 Reference ECG taken 11:48:16 HR=80 bpm, MPHR=114/90 mmhg, SpO2=95.0 %, Resp=15 B/min, Pain=0, Hasmukh=10, Strickland=2 11:53:00 Right Radial and groin(s) prepped with 2% chlorhexidine, and with a 3 min. waiting time. 11:53:19 HR=80 bpm, BRCP=204/79 mmhg, SpO2=94.0 %, Resp=16 B/min, Pain=0, Hasmukh=10, Strickland=2 11:53:59 paged 11:54:09 Pressure channel 1 zeroed. 11:54:25 MD responded 11:58:00 MD arrived. 11:58:16 HR=82 bpm, BWOG=723/87 mmhg, SpO2=94.0 %, Resp=14 B/min, Pain=0, Hasmukh=10, Strickland=2 Time Out. Correct patient, correct procedure,correct physician, power injector not loaded with contrast with surgical 12:02:25 team present. Time Out Concurred by MD, individual staff in procedure 12:03:19 HR=85 bpm, AAAT=082/91 mmhg, SpO2=93.0 %, Resp=19 B/min, Pain=0, Hasmukh=10, Strickland=2 12:03:32 Case Start 12::33 10 mL 1% XYLOCAINE given in lab by Elan Morataya in Right Radial via Subcutaneous. Ordered by Elan Morataya. 12:03:46 25 mcg FENTANYL given in lab by Kalia Edwards RN in Right Antecubital via Peripheral IV. Ord ered by Elan Morataya. 12:04:02 Access site was RIGHT Radial Artery. A SHEATH, FR6 RADIAL PRELUDE EASE 11CM FR 6 was advanced into the Radial (right) using the Perc utaneous 12:04:52 technique. 12:05:11 4000 units HEPARIN given in lab by Kalia Edwards RN in Right Antecubital via Peripheral IV. Ordered by Elan Morataya. 5 mL (Bolus) RADIAL COCKTAIL given in lab by Kalia Edwards RN in Right Radial via Radial. Using [Solution Name]. 12:05:26 Ordered by Elan Morataya. Reason: Ntg 200mcg. Recorded Pressure: Ao, HR=80, Condition=Condition 1 12:07:12 (Aorta) Ao 123/65/90 A JR 5.0 INFINITI CATHETER FR 6 was advanced over a wire. OMNIPAQUE, 350 MG, 150ML 150ML was us ed for 12:07:51 injections. 12:08:18 HR=79 bpm, FYAZ=177/79 mmhg, SpO2=91.0 %, Resp=12 B/min, Pain=0, Hasmukh=10, Strickland=2 12:10:15 The RCA was injected and visualized at various angles. OMNIPAQUE, 350 MG, 150ML 150ML used . After removing the current catheter a JL 3.5 INFINITI CATHETER FR 6 was advanced over a WIRE, E XCHANGE 260CM 12:10:48 3MMJ 260CM. 12:13:15 HR=79 bpm, RONM=937/84 mmhg, SpO2=92.0 %, Resp=12 B/min, Pain=0, Hasmukh=10, Strickland=2 After removing the current catheter a AL 1 GUIDE CATHETER FR 6 was advanced over a WIRE, EXCHAN GE 260CM 12:15:21 3MMJ 260CM. 12:18:00 The LCA was injected and visualized at various angles. OMNIPAQUE, 350 MG, 150ML 150ML used . 12:18:16 HR=79 bpm, YGLB=574/81 mmhg, SpO2=90.0 %, Resp=12 B/min, Pain=0, Hasmukh=10, Strickland=2 10.5 mL ANGIOMAX BOLUS given in lab by Kalia Edwards RN in Right Antecubital via Peripheral IV. Ordered by Hood, 12:21:09 Elan. 12:23:00 A WIRE, RUNTHROUGH NS FLOPPY .014 180CM 180CM was inserted via Radial (right). 12:23:17 HR=80 bpm, XTZX=570/79 mmhg, SpO2=93.0 %, Resp=12 B/min, Pain=0, Hasmukh=10, Strickland=2 1.75 mg/kg/hr ANGIOMAX DRIP given in lab by Kalia Edwards RN in Right Antecubital via Peripheral IV. Pump/Drip Flow = 12:23:31 24.5 ml/hr using NaCl .9 with a concentration of 250 mg in 50 ml. Ordered by Elan Morataya. 12:24:00 Interventional wire has crossed the lesion 12:24:32 25 mcg FENTANYL given in lab by Kalia Edwards RN in Right Antecubital via Peripheral IV. Ord ered by Elan Morataya. A STENT, 2.75 22 RESOLUTE INTEGRITY RX 2.75 22 was advanced through a AL 1 GUIDE CATHETER FR 6 over a 12:26:14 WIRE, RUNTHROUGH NS FLOPPY .014 180CM 180CM. A STENT, 2.75 22 RESOLUTE INTEGRITY RX 2.75 22 was deployed using a 30 DHARA INDEFLATOR at 14 dhara ospheres 12:26:15 for 11 seconds in the LAD Prox. 12:28:18 HR=80 bpm, YYYX=064/86 mmhg, SpO2=90.0 %, Resp=12 B/min, Pain=0, Hasmukh=10, Strickland=2 12:31:45 Delivery device removed A STENT, 2.5 30 RESOLUTE INTEGRITY RX 2.5 30 was advanced through a AL 1 GUIDE CATHETER FR 6 ov er a WIRE, 12:31:54 RUNTHROUGH NS FLOPPY .014 180CM 180CM. A STENT, 2.5 30 RESOLUTE INTEGRITY RX 2.5 30 was deployed using a 30 DHARA INDEFLATOR at 16 atmos pheres for 12:32:28 10 seconds in the OM1 Mid. 12:33:13 Delivery device removed 12:33:21 HR=79 bpm, OOQY=587/82 mmhg, SpO2=90.0 %, Resp=11 B/min, Strickland=2 12:34:59 Wire removed 12:35:31 Catheter was removed 12:38:18 HR=80 bpm, OHCU=053/78 mmhg, SpO2=91.0 %, Resp=9 B/min, Strickland=2 Assessment: Final Case, HR=85 BPM, Rhythm=SR, RJBK=254/78 mmhg, Chest Pain=0, Edema=None, Color =Normal, Skin = Warm, Dry Right Pulses: Matt Ped=2, Femoral=2, Radial=2 12:39:42 Left Pulses: Matt Ped=2, Femoral=2 Neurological: State=Alert, Ox3, GOETZ Respiration: Resp=18 B/min, SpO2=99 %, O2=0 lpm Radial Compression Device Used. 13 mLs of air placed in BAND, RADIAL COMPRESSION TR LARGE 29 29 CM. Affected 12:40:47 hand 93 % O2 saturation. 12:40:59 Case End 12:41:01 No case complications noted. 12:41:03 Cine recording checked. 12:43:09 600 mg PLAVIX given in lab by Kalia Edwards RN via Oral. Ordered by Elan Morataya. 12:43:15 HR=81 bpm, LPZO=583/83 mmhg, SpO2=91.0 %, Resp=9 B/min, Strickland=2 12:50:25 Implantable Device card placed in patient's chart. 12:50:32 Contrast Scanned 12:50:34 Patient moved to stretcher 12:50:36 A Left Heart Cath was performed. End Study - Contrast Media Used In Study Contrast Total Opened (mL) Total Used (mL) Total Wasted (mL) Omnipaque 35 35 0 End Study - Maximum Contrast Load Max Contrast Load (mL) 194.4 End Study - Radiation Exposure Fluoro Time (minutes) 9.6 End Study - Patient Disposition Complications Transferred To Interventional Outcome No Telemetry Bed successful
[2016-11-20] MEDS ORDERED: IOHEXOL 350 MG/ML 50 ML BTL (for Cath Lab) OTHER ONE (13:08)
--- NOTE | 2016-11-20 13:22 | MA ---
cc: JULIET REVELES DATE 11/20/2016 CONTRAST 30 cc of total contrast was administered. PROCEDURE PERFORMED 1. Fluoroscopy with interpretation 2. Coronary angiography 3. Percutaneous endovascular stenting with drug-eluting stent to the mid left anterior descending and mid first obtuse marginal branches. METHOD The risks, benefits and alternatives discussed with the patient and family members. They understood and consented verbally to the procedure by the . The right wrist was prepped and draped in a sterile fashion. The right wrist was anesthetized with 2% lidocaine. The right radial was cannulated and a 6-Namibian 7-cm sheath was placed without difficulty. CORONARY ANGIOGRAPHY 1. Left main coronary is angiographically normal. 2. The left anterior descending coronary artery proximally has minor luminal irregularities. The mid segment has a 90% stenosis. The remainder of the vessel has mild luminal irregularities. 3. The left circumflex gives rise to a high first obtuse marginal branch with an 80% stenosis in the proximal to mid segment. The circumflex is left dominant, gives rise to a PDA branch which has minor luminal irregularities. 4. Right coronary artery is nondominant and angiographically normal. PERCUTANEOUS INTERVENTION The left coronary circulation was selectively engaged. A 6-[place]amibian AL-1 guide catheter, 0.014 inch 180 cm run-through wire was navigated down to the distal left anterior descending coronary artery. A 3.0 x 22 mm RX Resolute drug-eluting stent was deployed in the mid left anterior descending coronary artery. The wire was then redirected down the first obtuse marginal branch. A 2.5 x 30 mm RX Resolute drug-eluting stent was advanced down to the first obtuse marginal branch and deployed. Repeat angiography showed no residual stenosis in either the LAD or the OM1. Guide catheter removed. Sheath removed. HemoBand applied. Angiomax was noted throughout the entire procedure to maintain appropriate anticoagulation. CONCLUSIONS 1. Severe [place] two-vessel coronary artery disease involving the mid left anterior descending and first obtuse marginal branches. 2. Successful percutaneous endovascular stenting with drug-eluting stent to the mid left anterior descending and first obtuse marginal branches. PLAN The patient to be continued on aspirin, initiated on Plavix, continued on statin and beta-shakira. Follow up with Dr. Leonard in an outpatient setting. We will monitor overnight. If he does well, he can be discharge tomorrow. Discussed the aortic valve situation with his and daughter at extended length. For right now, they would like to continue with just medical management and no plans for any invasive therapies. MD LEN Cole/ILIANA /12:46 PM /1:03 PM
--- NOTE | 2016-11-20 14:52 | HHI.PR ---
Subjective Remarks Patient laying in bed he just had a heart catheter today, he is confused and not coherent, he think he is at home, his family telling me that he gets confused in the hospital and after anesthesia He had to stenting today by a computer assembler, will continue aspirin and Plavix and monitor until the morning as per cardiology recommendation Patient denied having chest pain at this point or other complaint Objective Vitals Vital Signs Date Time Temp Pulse Resp B/P Pulse Ox O2 Delivery O2 Flow Rate FiO2 11/20/16 04:23 98.7 94 16 125/81 94 11/20/16 03:00 91 11/20/16 01:47 98.6 94 16 131/90 92 11/20/16 01:00 98.8 94 16 139/85 95 11/19/16 22:00 95 16 128/93 96 Room Air 11/19/16 21:00 87 16 136/69 96 Room Air 11/19/16 20:00 83 16 133/66 95 Room Air 11/19/16 19:31 95 Room Air 11/19/16 19:31 Nasal Cannula 2 11/19/16 19:30 97 16 154/78 96 Room Air 11/19/16 19:11 104 20 95 11/19/16 18:59 98.8 97 16 135/69 96 Room Air I/O 11/19/16 11/19/16 11/19/16 11/20/16 11/20/16 11/20/16 07:00 15:00 23:00 07:00 15:00 23:00 Intake Total 290 ml Balance 290 ml Intake Oral 240 ml IV Total 50 ml # Voids 2 Result Diagram: 11/20/16 0315 11/20/16 0055 Objective Remarks GENERAL: This is a well-nourished, well-developed patient, in no apparent distress. SKIN: No rashes, warm and dry HEAD: Atraumatic. Normocephalic. EYES: Pupils equal round and reactive. Extraocular motions intact. No scleral icterus. ENT: Nose without bleeding, or drainage, Airway patent. NECK: Trachea midline. Supple CARDIOVASCULAR: Regular rate and rhythm positive systolic murmur at the aortic area 3-4 out of 6 RESPIRATORY: Fair air entry bilaterally. No wheezes, rales, or rhonchi. GASTROINTESTINAL: Abdomen soft, non-tender, nondistended. Positive bowel sounds MUSCULOSKELETAL: Extremities without clubbing, cyanosis, or edema. Pedal pulses appreciated NEUROLOGICAL: Awake and alert. Moves all extremity. Normal speech.no focal neurological deficit A/P Problem List: (1) NSTEMI (non-ST elevated myocardial infarction) ICD Code: I21.4 Status: Acute (2) Hypokalemia ICD Code: E87.6 Status: Acute (3) Renal insufficiency ICD Code: N28.9 Status: Acute (4) Thrombocytopenia ICD Code: D69.6 Status: Acute (5) Dementia ICD Code: F03.90 Status: Acute (6) DM (diabetes mellitus) ICD Code: E11.9 Status: Acute Assessment and Plan - NSTEMI: Trop 0.97, EKG . H/o CAD, previous Cath 12/2014 w/ multivessel disease and severe , [facility] pt not surgical candidate due to high risk and severe dementia, condition unchanged, pt remains poor surgical candidate. Status post heart catheter today with severe stenosis in LAD and first branches with 2 ARIES stenting, continue aspirin and Plavix, monitor telemetry M - Severe aortic stenosis with calcification: Surface is 0.6 cm, medical management for now cardiology following - Hypokalemia: Replace monitor repeat lab in a.m. - IMAN on CKD stage III: . Creatinine 1.94, previously 1.40 on 10/23/14. I will give 1 more liter of normal saline post heart catheter, hold Lisinopril, repeat labs in am. - Thrombocytopenia: Chronic. Platelets 124, previously 92 on 10/23/14, no active bleeding, Hemoccult negative, will monitor closely in light of Heparin gtt. Repeat labs in am. - Dementia: At baseline per family. Ativan prn for agitation if needed - DM: Sliding scale w/ Accu-Cheks, resume home Insulin. - DVT Prophylaxis: On Heparin gtt Shabbir Daugherty MD Nov 20, 2016 14:52
[2016-11-20] MEDS ORDERED: INSULIN DETEMIR 100 UNITS/ML VIAL SQ SCH (16:00)
--- NOTE | 2016-11-20 17:43 | EKG ---
Date Performed: 11/19/2016 Time Performed: 19:17:58 PTAGE: 81 years EKG: Sinus rhythm POSSIBLE LEFT ATRIAL ENLARGEMENT LEFT VENTRICULAR HYPERTROPHY AND ST-T CHANGE ABNORMAL ECG PREVIOUS TRACING : 10/22/2014 08.06 Compared to the previous tracing ST-T changes present DOCTOR: Bettye Umana Interpretating Date/Time 11/20/2016 17:42:47
[2016-11-20] MEDS ORDERED: ASPIRIN EC 81 MG TABEC PO SCH (21:00)
[2016-11-20] MEDS ORDERED: ATORVASTATIN 80 MG TAB PO SCH (21:00)
[2016-11-20] MEDS ORDERED: LORazepam 0.5 MG TAB PO ONE (23:45)
[2016-11-20] MEDS ORDERED: RESP: ALBUTEROL 2.5 MG/IPRATROPIUM 0.5 MG NEB (PRN) NEB (23:45)
[2016-11-20] MEDS ORDERED: ENALAPRILAT 1.25 MG/ML VIAL IV PUSH PRN (23:45)
[2016-11-21] VITALS (16 sets, daily range): BP systolic 134–165; BP diastolic 68–93; PULSE 78–100; RESP 16; TEMP 98.2–98.4; O2SAT 93–97
--- NOTE | 2016-11-21 00:41 | RADRPT ---
EXAM DATE/TIME: 11/21/2016 00:05 [facility] COMPARISON: CHEST SINGLE AP, November 19, 2016, 19:38. INDICATIONS : Shortness of breath. MEDICAL HISTORY : None. SURGICAL HISTORY : Coronary artery stent. ENCOUNTER: Subsequent ACUITY: 3 days PAIN SCORE: Non-responsive. LOCATION: Bilateral chest FINDINGS: A single AP semierect view the chest was obtained and now demonstrates new streaky perihilar and biba silar opacities. There is no focal consolidation. The heart size is at the upper limits of normal. Th e costophrenic angles appear patent. The bony thorax is intact and there are multiple overlying elect rocardiogram leads. CONCLUSION: New bilateral perihilar and bibasilar opacities of concern for early pulmonary edema. There is no definite effusion on this single view study. Terrell Monahan MD on November 21, 2016 at 0:39 Board Certified Radiologist. This report was verified electronically.
[2016-11-21 05:48] LABS: AUTOMATED NEUTROPHIL # 5.8 TH/MM3 (1.8-7.7); BASOPHIL # 0.1 TH/MM3 (0-0.2); BASOPHIL % 0.9 % (0.0-2.0); EOSINOPHIL # 0.2 TH/MM3 (0-0.4); EOSINOPHIL % 3.1 % (0.0-4.0); HEMATOCRIT 33.6 % (39.0-51.0); HEMO FLAGS DIFF FINAL; LYMPH % 15.1 % (9.0-44.0); LYMPHOCYTE # 1.2 TH/MM3 (1.0-4.8); MEAN CELL VOLUME 83.4 FL (80.0-100.0); MEAN CORPUSCULAR HEMOGLOBIN 26.8 PG (27.0-34.0); MEAN CORPUSCULAR HGB CONC 32.2 % (32.0-36.0); MONO % 6.8 % (0.0-8.0); NEUT % 74.1 % (16.0-70.0); PLATELET COUNT 112 TH/MM3 (150-450); RED BLOOD COUNT 4.03 MIL/MM3 (4.50-5.90); RED CELL DISTRIBUTION WIDTH 15.5 % (11.6-17.2); WHITE BLOOD COUNT 7.8 TH/MM3 (4.0-11.0)
[2016-11-21 06:15] LABS: POTASSIUM 3.3 MEQ/L (3.5-5.1)
[2016-11-21 06:19] LABS: HDL CHOLESTEROL 45.4 MG/DL (40.0-60.0)
[2016-11-21] MEDS: INSULIN DETEMIR 100 UNITS/ML VIAL SQ SCH (06:20)
[2016-11-21] MEDS: INSULIN ASPART SUPPLEMENTAL SCALE SQ SCH ×2 (06:21→10:58)
[2016-11-21 07:03] LABS: P2Y12 REACTION UNITS (PRU) 272 PRU (194-418)
[2016-11-21] MEDS: METOPROLOL TARTRATE 50 MG TAB PO SCH (08:32)
[2016-11-21] MEDS: SODIUM CHLORIDE 0.9% FLUSH 10 ML FLUSH IV FLUSH SCH (08:32)
[2016-11-21] MEDS: PANTOPRAZOLE SOD 20 MG DELAYED RELEASE TAB PO SCH (08:32)
[2016-11-21] MEDS: DOCUSATE SODIUM 50 MG/SENNA 8.6 MG TAB PO SCH (08:33)
[2016-11-21] MEDS ORDERED: POTASSIUM CHLORIDE 10 MEQ CONTROLLED RELEASE TAB PO ONE (08:45)
--- NOTE | 2016-11-21 08:47 | PD.CARD.PN ---
Subjective Subjective Remarks Chart is reviewed. The patient is very confused only oriented to name and there is a actuary in the room. EKG is without change showing sinus rhythm with nonspecific ST-T wave changes. Objective Medications Reviewed Vital Signs / I&O Vital Signs Date Time Temp Pulse Resp B/P Pulse Ox O2 Delivery O2 Flow Rate FiO2 11/21/16 06:38 90 11/21/16 05:00 94 11/21/16 04:17 82 11/21/16 03:33 98.3 84 165/93 95 140/80 11/21/16 03:00 82 11/21/16 02:00 80 11/21/16 01:00 86 11/21/16 00:56 97 21 11/21/16 00:49 79 11/21/16 00:00 82 11/20/16 23:36 97.8 78 175/90 97 168/91 11/20/16 23:00 79 11/20/16 22:00 82 11/20/16 21:21 91 156/92 94 11/20/16 21:00 84 11/20/16 20:00 112 11/20/16 19:00 94 11/20/16 18:00 90 11/20/16 17:00 88 11/20/16 16:00 98.0 87 20 131/79 95 11/20/16 16:00 87 11/20/16 13:00 84 11/20/16 13:00 97.4 84 20 137/78 99 11/20/16 11:00 88 11/20/16 10:00 110 11/20/16 09:00 106 I/O 11/20/16 11/20/16 11/20/16 11/21/16 11/21/16 11/21/16 07:00 15:00 23:00 07:00 15:00 23:00 Intake Total 290 ml 480 ml Output Total 1125 ml Balance 290 ml -645 ml Intake Oral 240 ml 480 ml IV Total 50 ml Output Urine Total 1125 ml # Voids 2 Physical Exam GENERAL: Well-nourished, well-developed patient in no apparent distress. SKIN: Warm and dry. NECK: JVD normal - less than or equal to 5 cm H20. CARDIOVASCULAR: Regular rate and rhythm without gallops, or rubs. 2-3/6 late peaking systolic ejection murmur at the base. RESPIRATORY: Normal breath sounds - equal bilaterally. No accessory muscle use. No wheezes, rales or rubs. PERIPHERY: No cyanosis, or edema. Catheter site dry. Laboratory Laboratory Tests Test 11/20/16 11/21/16 09:46 04:30 Activated Partial 51.9 SEC Thromboplast Time White Blood Count 7.8 TH/MM3 Red Blood Count 4.03 MIL/MM3 Hemoglobin 10.8 GM/DL Hematocrit 33.6 % Mean Corpuscular Volume 83.4 FL Mean Corpuscular Hemoglobin 26.8 PG Mean Corpuscular Hemoglobin 32.2 % Concent Red Cell Distribution Width 15.5 % Platelet Count 112 TH/MM3 Mean Platelet Volume 9.9 FL Neutrophils (%) (Auto) 74.1 % Lymphocytes (%) (Auto) 15.1 % Monocytes (%) (Auto) 6.8 % Eosinophils (%) (Auto) 3.1 % Basophils (%) (Auto) 0.9 % Neutrophils # (Auto) 5.8 TH/MM3 Lymphocytes # (Auto) 1.2 TH/MM3 Monocytes # (Auto) 0.5 TH/MM3 Eosinophils # (Auto) 0.2 TH/MM3 Basophils # (Auto) 0.1 TH/MM3 CBC Comment DIFF FINAL Differential Comment Platelet Function P2Y12 React 272 PRU Units Sodium Level 143 MEQ/L Potassium Level 3.3 MEQ/L Chloride Level 109 MEQ/L Carbon Dioxide Level 22.0 MEQ/L Anion Gap 12 MEQ/L Blood Urea Nitrogen 18 MG/DL Creatinine 1.53 MG/DL Estimat Glomerular Filtration 44 ML/MIN Rate Random Glucose 92 MG/DL Calcium Level 8.7 MG/DL Total Creatine Kinase 269 U/L B-Type Natriuretic Peptide 347 PG/ML Triglycerides Level 71 MG/DL Cholesterol Level 98 MG/DL LDL Cholesterol 38 MG/DL HDL Cholesterol 45.4 MG/DL Cholesterol/HDL Ratio 2.15 RATIO Imaging Last 48 hours Impressions Chest X-Ray 11/20/16 6588 Signed Impressions: Service Date/Time: Monday, November 21, 2016 00:05 - CONCLUSION: New bilateral perihilar and bibasilar opacities of concern for early pulmonary edema. There is no definite effusion on this single view study. Terrell Monahan MD Chest X-Ray 11/19/16 192 Signed Impressions: Service Date/Time: November 19:38 - CONCLUSION: No acute disease. Don Chapin MD Assessment and Plan Problem List: (1) NSTEMI (non-ST elevated myocardial infarction) (2) Aortic stenosis (3) CAD (coronary artery disease) Assessment and Plan Problems: Non-ST elevation DE with double vessel stenting. Severe aortic stenosis Dementia Hypertension Hyperlipidemia Hypokalemia Recommendations: Replete potassium Continue aspirin and clopidogrel without interruption because of drug-eluting stents. Statins The patient will need blood pressure control which I will leave to the primary service. I do not see any way he can go home given his confusion. We will be available if needed. He will need to follow-up with Dr. [place]. Wong Gray MD Nov 21, 2016 08:47
[2016-11-21] MEDS ORDERED: CLOPIDOGREL 75 MG TAB PO SCH (09:00)
--- NOTE | 2016-11-21 12:08 | RADRPT ---
EXAM DATE/TIME: 11/21/2016 11:30 [facility] COMPARISON: MRI BRAIN W/O CONTRAST, October 24, 2014, 12:26. CT BRAIN W/O CONTRAST, October 11, 2011, 14:46. INDICATIONS : Altered mental status, confusion. RADIATION DOSE: 45.48 CTDIvol (mGy) MEDICAL HISTORY : Cardiovascular disease. Hypertension. Carcinoma, prostate. SURGICAL HISTORY : None. ENCOUNTER: Initial ACUITY: 1 day PAIN SCALE: Non-responsive LOCATION: cranial TECHNIQUE: Multiple contiguous axial images were obtained of the head. Using automated exposure control and adj ustment of the mA and/or kV according to patient size, radiation dose was kept as low as reasonably a chievable to obtain optimal diagnostic quality images. FINDINGS: CEREBRUM: The ventricles are normal for age. No evidence of midline shift, mass lesion, hemorrhage or acute in farction. No extra-axial fluid collections are seen. POSTERIOR FOSSA: The cerebellum and brainstem are intact. The 4th ventricle is midline. The cerebellopontine angle i s unremarkable. EXTRACRANIAL: The visualized portion of the orbits is intact. Mild mucoperiosteal thickening seen of the visualized paranasal sinuses and there is small fluid inferiorly of the right mastoid air cells. These features are similar to the prior studies. SKULL: The calvaria is intact. No evidence of skull fracture. CONCLUSION: No evidence of acute intracranial abnormality. Don Avery MD on November 21, 2016 at 12:05 Board Certified Radiologist. This report was verified electronically.
[2016-11-21] MEDS ORDERED: METO-309 PO (13:22)
[2016-11-21] MEDS ORDERED: PLAV75TA29 PO (13:22)
--- NOTE | 2016-11-21 13:26 | HHI.PR ---
Subjective Remarks I was told patient got agitated overnight he had a sister who tried to pick her , however when I saw him today he was calm laying in bed but he still confused, he still noncoherent he asked to question "Have you been used to use same brain before" also he told me "I'm alive. Dad " Discussed with his son and the and they both told me that this is his baseline and they declined any workup that I already started in the morning, patient had a head CT which came back negative, they declined neurology consultation they said he follow with female neurologist presumptively Dr. Llanes and they will follow up with her and they requested to discharge him Objective Vitals Vital Signs Date Time Temp Pulse Resp B/P Pulse Ox O2 Delivery O2 Flow Rate FiO2 11/21/16 12:00 98.4 86 16 145/82 93 11/21/16 12:00 86 11/21/16 11:00 86 11/21/16 10:00 78 11/21/16 09:00 86 11/21/16 08:00 87 11/21/16 08:00 98.2 100 16 134/68 93 11/21/16 07:00 82 11/21/16 06:38 90 11/21/16 05:00 94 11/21/16 04:17 82 11/21/16 03:33 98.3 84 165/93 95 140/80 11/21/16 03:00 82 11/21/16 02:00 80 11/21/16 01:00 86 11/21/16 00:56 97 21 11/21/16 00:49 79 11/21/16 00:00 82 11/20/16 23:36 97.8 78 175/90 97 168/91 11/20/16 23:00 79 11/20/16 22:00 82 11/20/16 21:21 91 156/92 94 11/20/16 21:00 84 11/20/16 20:00 112 11/20/16 19:00 94 11/20/16 18:00 90 11/20/16 17:00 88 11/20/16 16:00 98.0 87 20 131/79 95 11/20/16 16:00 87 I/O 11/20/16 11/20/16 11/20/16 11/21/16 11/21/16 11/21/16 07:00 15:00 23:00 07:00 15:00 23:00 Intake Total 290 ml 480 ml Output Total 1125 ml Balance 290 ml -645 ml Intake Oral 240 ml 480 ml IV Total 50 ml Output Urine Total 1125 ml # Voids 2 Result Diagram: 11/21/1642911/21/16429 Objective Remarks GENERAL: This is a well-nourished, well-developed patient, in no apparent distress. SKIN: No rashes, warm and dry HEAD: Atraumatic. Normocephalic. EYES: Pupils equal round and reactive. Extraocular motions intact. No scleral icterus. ENT: Nose without bleeding, or drainage, Airway patent. NECK: Trachea midline. Supple CARDIOVASCULAR: Regular rate and rhythm positive systolic murmur at the aortic area 3-4 out of 6 RESPIRATORY: Fair air entry bilaterally. No wheezes, rales, or rhonchi. GASTROINTESTINAL: Abdomen soft, non-tender, nondistended. Positive bowel sounds MUSCULOSKELETAL: Extremities without clubbing, cyanosis, or edema. Pedal pulses appreciated NEUROLOGICAL: Awake and alert. Confused noncoherent Moves all extremity. Normal speech.no focal neurological deficit A/P Problem List: (1) NSTEMI (non-ST elevated myocardial infarction) ICD Code: I21.4 Status: Acute (2) Hypokalemia ICD Code: E87.6 Status: Acute (3) Renal insufficiency ICD Code: N28.9 Status: Acute (4) Thrombocytopenia ICD Code: D69.6 Status: Acute (5) Dementia ICD Code: F03.90 Status: Acute (6) DM (diabetes mellitus) ICD Code: E11.9 Status: Acute Assessment and Plan - NSTEMI: Trop 0.97, EKG . H/o CAD, previous Cath 12/2014 w/ multivessel disease and severe , referred to [facility] however pt not surgical candidate due to high risk and severe dementia, condition unchanged, pt remains poor surgical candidate. Status post heart catheter today with severe stenosis in LAD and first branches with 2 ARIES stenting, continue aspirin and Plavix, monitor telemetry M - Severe aortic stenosis with calcification: Surface is 0.6 cm, medical management for now cardiology following - Hypokalemia: Replace monitor repeat lab in a.m. - IMAN on CKD stage III: . Creatinine 1.94, previously 1.40 on 10/23/14. I will give 1 more liter of normal saline post heart catheter, hold Lisinopril, repeat labs in am. - Thrombocytopenia: Chronic. Platelets 124, previously 92 on 10/23/14, no active bleeding, Hemoccult negative, will monitor closely in light of Heparin gtt. Repeat labs in am. - Dementia: At baseline per family. Ativan prn for agitation if needed, I tried to start a workup included CT of the head but the family declined neurology consultation and the rest of the lab work stating they follow up with a female neurologist - DM: Sliding scale w/ Accu-Cheks, resume home Insulin. - DVT Prophylaxis: Aspirin and Plavix Discharge Planning Discharge patient to home Condition on discharge: Improved Healthy heart Diet as tolerated Ad Maritza activity Rx written: See med rec Follow-up with primary care physician, neurology and cardiology Shabbir Daugherty MD Nov 21, 2016 13:26
--- NOTE | 2016-11-21 14:48 | HHI.FF ---
Face to Face Verification Diagnosis: (1) Dementia (2) Renal insufficiency (3) DM (diabetes mellitus) (4) NSTEMI (non-ST elevated myocardial infarction) (5) Aortic stenosis (6) CAD (coronary artery disease) Home Health Nursing Order: Medical education Core Sticker Order: To Evaluate: Living conditions/environment I have seen patient John Damon on 11/21/16. My clinical findings support the need for the requested home health care services because: Limited ability to care for self Need for psychosocial assistance I certify that my clinical findings support that this patient is homebound because: Impaired cognitive ability/safety Shabbir Daugherty MD Nov 21, 2016 14:48
[2016-11-21 15:03] LABS: INDIRECT BILIRUBIN 0.9 MG/DL (0.0-0.8); TOTAL BILIRUBIN ADULT 1.1 MG/DL (0.2-1.0)
--- NOTE | 2016-11-21 19:39 | HHI.DS ---
Discharge Summary Admission Date Nov 19, 2016 at 21:03 Discharge Date: Nov 21, 2016 Admitting Diagnosis NSTEMI (1) NSTEMI (non-ST elevated myocardial infarction) ICD Code: I21.4 (2) Hypokalemia ICD Code: E87.6 (3) Renal insufficiency ICD Code: N28.9 (4) Thrombocytopenia ICD Code: D69.6 (5) Dementia ICD Code: F03.90 (6) DM (diabetes mellitus) ICD Code: E11.9 Procedures Heart catheter Brief History - From Admission This is an 81-year-old male with a PMH of HTN, Hyperlipidemia, Dementia, DM, CAD and who was brought to the ER by EMS secondary to complaints of chest pain. Pt w/ significant Dementia, seemingly at baseline per family, but able to relay c/o chest pain. Denies fever or chills, reports mild SOB only w/ episode of chest pain. Previous h/o CAD, follows w/ Dr. Leonard. Previous Cardiac Cath 10/2014 w/ multivessel disease and severe aortic stenosis, pt referred to [facility] for AVR and CABG, however not deemed to be surgical candidate in light of severe dementia and high risk. On arrival, BP 135/69, HR 97, O2 sat 96% on RA, Afebrile. CBC essentially baseline. Platelets 124, previously 92. Creatinine 1.94, previously 1.40 on 10/23/14. K+ 3.1. Trop 0.97 , EKG w/ no acute ischemia. Hemoccult negative on exam. CXR with no acute findings. Dr. Morataya consulted by ER physician, recommended Heparin gtt w/ consultation for Dr. Leonard in am. Pt currently chest pain free and without complaints. CBC/BMP: 11/21/16 0430 11/21/16 0430 Significant Findings Laboratory Tests Test 11/19/16 11/20/16 11/20/16 11/20/16 19:25 00:55 03:15 07:43 Red Blood Count 3.84 MIL/MM3 3.71 MIL/MM3 (4.50-5.90) (4.50-5.90) Hemoglobin 10.7 GM/DL 10.1 GM/DL (13.0-17.0) (13.0-17.0) Hematocrit 31.9 % 30.8 % (39.0-51.0) (39.0-51.0) Platelet Count 124 TH/MM3 111 TH/MM3 (150-450) (150-450) Eosinophils (%) (Auto) 5.1 % (0.0-4.0) 6.5 % (0.0-4.0) Potassium Level 3.1 MEQ/L 3.3 MEQ/L (3.5-5.1) (3.5-5.1) Blood Urea Nitrogen 23 MG/DL (7-18) 22 MG/DL (7-18) Creatinine 1.94 MG/DL 1.84 MG/DL (0.60-1.30) (0.60-1.30) Estimat Glomerular Filtration 33 ML/MIN (>89) 35 ML/MIN (>89) Rate Random Glucose 170 MG/DL 155 MG/DL (74-106) (74-106) Troponin I 0.97 NG/ML 0.76 NG/ML 0.50 NG/ML (0.02-0.05) (0.02-0.05) (0.02-0.05) Chloride Level 110 MEQ/L (98-107) Albumin 3.0 GM/DL (3.4-5.0) Activated Partial 41.0 SEC Thromboplast Time (24.3-30.1) Test 11/20/16 11/21/16 11/21/16 09:46 04:30 13:50 Activated Partial 51.9 SEC Thromboplast Time (24.3-30.1) Red Blood Count 4.03 MIL/MM3 (4.50-5.90) Hemoglobin 10.8 GM/DL (13.0-17.0) Hematocrit 33.6 % (39.0-51.0) Mean Corpuscular Hemoglobin 26.8 PG (27.0-34.0) Platelet Count 112 TH/MM3 (150-450) Neutrophils (%) (Auto) 74.1 % (16.0-70.0) Potassium Level 3.3 MEQ/L (3.5-5.1) Chloride Level 109 MEQ/L (98-107) Creatinine 1.53 MG/DL (0.60-1.30) Estimat Glomerular Filtration 44 ML/MIN (>89) Rate B-Type Natriuretic Peptide 347 PG/ML (0-100) Cholesterol Level 98 MG/DL (120-200) Total Bilirubin 1.1 MG/DL (0.2-1.0) Indirect Bilirubin 0.9 MG/DL (0.0-0.8) Albumin 3.1 GM/DL (3.4-5.0) PE at Discharge GENERAL: This is a well-nourished, well-developed patient, in no apparent distress. SKIN: No rashes, warm and dry HEAD: Atraumatic. Normocephalic. EYES: Pupils equal round and reactive. Extraocular motions intact. No scleral icterus. ENT: Nose without bleeding, or drainage, Airway patent. NECK: Trachea midline. Supple CARDIOVASCULAR: Regular rate and rhythm positive systolic murmur at the aortic area 3-4 out of 6 RESPIRATORY: Fair air entry bilaterally. No wheezes, rales, or rhonchi. GASTROINTESTINAL: Abdomen soft, non-tender, nondistended. Positive bowel sounds MUSCULOSKELETAL: Extremities without clubbing, cyanosis, or edema. Pedal pulses appreciated NEUROLOGICAL: Awake and alert. Confused noncoherent Moves all extremity. Normal speech.no focal neurological deficit Hospital Course 81 years old male admitted with NSTEMI: Trop 0.97, EKG . H/o CAD, previous Cath 12/2014 w/ multivessel disease and severe , referred to [facility] however pt not surgical candidate due to high risk and severe dementia, condition unchanged , pt remains poor surgical candidate. Status post heart catheter today with severe stenosis in LAD and first branches with 2 ARIES stenting, continue aspirin and Plavix, monitor telemetry M Severe aortic stenosis with calcification: Surface is 0.6 cm, medical management for now cardiology following Hypokalemia: Replace monitor repeat lab in a.m. IMAN on CKD stage III: . Creatinine 1.94, previously 1.40 on 10/23/14. I will give 1 more liter of normal saline post heart catheter, hold Lisinopril, repeat labs in am. Thrombocytopenia: Chronic. Platelets 124, previously 92 on 10/23/14, no active bleeding, Hemoccult negative, will monitor closely in light of Heparin gtt. Repeat labs in am. Dementia: At baseline per family. Ativan prn for agitation if needed, I tried to start a workup included CT of the head but the family declined neurology consultation and the rest of the lab work stating they follow up with a female neurologist DM: Sliding scale w/ Accu-Cheks, resume home Insulin. DVT Prophylaxis: Aspirin and Plavix Lengthy discussion with the family regarding assessing his dementia versus confusion or change in mental status, I did a head CT which came back negative, family declined neurology consultation and requested the patient to be discharged home, will discharge with home health care with social service Pt Condition on Discharge: Stable Discharge Disposition: Disch w/ Home Health Serv Discharge Time: > 30 minutes Discharge Instructions DIET: Follow Instructions for: Heart Healthy Diet, Diabetic Diet Activities you can perform: Weight Bearing as Cecily Shabbir Daugherty MD Nov 21, 2016 19:38
--- NOTE | 2016-11-22 09:52 | EKG ---
Date Performed: 11/21/2016 Time Performed: 06:25:50 PTAGE: 81 years EKG: Sinus rhythm LVH with secondary repolarization abnormality Extensive ST-T changes may be due to hypertrophy and/o r ischemia Abnormal ECG PREVIOUS TRACING : 11/19/2016 19.17 DOCTOR: Elan Morataya Interpretating Date/Time 11/22/2016 09:41:10
== END 2016-11-21 14:56 | disposition home health service (06) | DRG 247 ==
LOC: NEPE 18:57 → NEDA 21:03 → HCIS 11-20 01:10
PROVIDERS: ADMIT Hospitalist; ATTEND Hospitalist
PROC: B2111ZZ Fluoroscopy of Multiple Coronary Arteries using Low Osmolar Contrast (ICD-10-PCS; 2016-11-20)
PROC: 027135Z Dilation of Coronary Artery, Two Arteries with Two Drug-eluting Intraluminal Devices, Percutaneous Approach (ICD-10-PCS; principal; 2016-11-20 11:00)
DX: I21.4 Non-ST elevation (NSTEMI) myocardial infarction (principal); N17.9 Acute kidney failure, unspecified; E11.22 Type 2 diabetes mellitus with diabetic chronic kidney disease; D69.6 Thrombocytopenia, unspecified; F03.90 Unspecified dementia, unspecified severity, without behavioral disturbance, psychotic disturbance, mood disturbance, and anxiety; N18.3 Chronic kidney disease, stage 3 (moderate); I08.0 Rheumatic disorders of both mitral and aortic valves; E87.6 Hypokalemia; I25.10 Atherosclerotic heart disease of native coronary artery without angina pectoris; I12.9 Hypertensive chronic kidney disease with stage 1 through stage 4 chronic kidney disease, or unspecified chronic kidney disease; E78.5 Hyperlipidemia, unspecified; I49.3 Ventricular premature depolarization; J44.9 Chronic obstructive pulmonary disease, unspecified; K21.9 Gastro-esophageal reflux disease without esophagitis; Z79.4 Long term (current) use of insulin; Z88.7 Allergy status to serum and vaccine; Z91.012 Allergy to eggs; Z95.5 Presence of coronary angioplasty implant and graft
CPT/HCPCS: 70450; 71010; 80048; 80053; 80061; 80076; 82140; 82550; 82552; 82607; 82948; 83605; 83735; 83880; 84100; 84207; 84425; 84484; 85025; 85576; 85610; 85730; 92928; 92929; 93005; 93306; 93454; 94664; C1769; C1874; C1887; C1893; J0583; J1644; J3010; J7030; Q9967

== ENCOUNTER 2017-08-21 09:25 | Inpatient (IN) | payer MEDICARE, BC ==
[2017-08-21] VITALS (12 sets, daily range): BP systolic 131–197; BP diastolic 56–80; PULSE 77–105; RESP 14–28; TEMP 97.8–100.9; O2SAT 93–98
[~2017-08-21] VITALS: Ht 170.2 cm; Wt 67.9 kg
[~2017-08-21 09:25] MED LIST changes: -1-ME1LIQ PO; -ALBU6.7H INH; +AMLO10TA2 PO; +ASPI1TAB57 PO; -ASPI81TA82 PO; -ATOR80TA41 PO; +ATOR80TA45 PO; -CEPH500T PO; -DULE100A PO; -FLUN25I; +HUMALOG SQ; -HUMALOGP SC; -HYDR-2768 PO; -LANTUS2P SC; +LANTUS2P SQ; -LANTUSP SQ; +METO-309 PO; -METO25TA6 PO; +METO50TA PO; -NITR.4 SL; +NITR50VP; -OMEP20CA5 PO; +OMEP20TA93 PO; +PLAV75TA29 PO; -XALA0.00 EACH EYE
--- NOTE | 2017-08-21 09:43 | PD ---
HPI Chief Complaint: left hip pain Time Seen by Provider: 09:37 Travel History International Travel<30 days: No Contact w/Intl Traveler<30days: No Traveled to known affect area: No History of Present Illness HPI The patient is a 82-year-old male who presents to the emergency department via EMS after apparent fall at home. The patient apparently lives with a son, has a history of dementia, fell during the night. The family place the patient back in the bed, however, the patient was unable to ambulate. Therefore, EMS was called to the scene, was noted the patient had a slightly shortened left lower extremity. The patient is a somewhat poor limited historian secondary to dementia, he will follow simple commands. He does complain of left hip pain. He denies any headache, neck pain, chest pain, shortness breath, nausea, vomiting, or abdominal pain. Symptoms are moderate, exacerbated after falling, and there are no current alleviating factors. 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 aortic sclerosis, mild aortic valve stenosis) High Cholesterol: Yes Chemotherapy: No Chest Pain: Yes Congestive Heart Failure: No COPD: Yes Cerebrovascular Accident: No Coronary Artery Disease: Yes Dementia: Yes Diabetes: Yes (TYPE 2) Diminished Hearing: No Endocrine: Yes Gastrointestinal Disorders: Yes GERD: Yes Glaucoma: No Genitourinary: Yes Headaches: Yes Hepatitis: No Hiatal Hernia: No Hypertension: Yes Immune Disorder: No Kidney Stones: Yes Musculoskeletal: No Neurologic: Yes Psychiatric: No Reproductive: No Respiratory: Yes (copd and asthma) Immunizations Current: Yes (PT ALLERGIC TO TETANUS) Migraines: No Radiation Therapy: Yes Renal Failure: No Seizures: No Sickle Cell Disease: No Sleep Apnea: No Thyroid Disease: No Ulcer: No Past Surgical History Abdominal Surgery: Yes (appendectomy) AICD: No Appendectomy: Yes Arteriovenous Shunt: No Body Medical Devices: STENTS Cardiac Surgery: No Coronary Stent: Yes (x1) Ear Surgery: No Endocrine Surgery: No Eye Surgery: Yes (LENS IMPLANTS GREGORY) Genitourinary Surgery: Yes (EXC. PENILE ABSCESS, LITHOTRIPSY prostate bx) Gynecologic Surgery: No Insulin Pump: No Joint Replacement: No Oral Surgery: Yes Pacemaker: No Thoracic Surgery: No Tonsillectomy: Yes Other Surgery: Yes (HEMORRHOIDECTOMY) Social History Alcohol Use: No Tobacco Use: No (quit 20+ yrs ago smoked 1 ppd) Substance Use: No Allergies-Medications (Allergen,Severity, Reaction): Coded Allergies: FD and C yellow no.10 (quinoline ye (Unverified Allergy, Severe, 08/21/17) causes swelling egg (Unverified Allergy, Severe, 08/21/17) causes swelling at inj site when shot has egg diretive tetanus toxoid, adsorbed (Unverified Allergy, Severe, 08/21/17) swelling due to egg deritive Uncoded Allergies: Yellow Dye #3 and #4 (Allergy, Severe, 10/05/14) . Reported Meds & Prescriptions Reported Meds & Active Scripts Active Plavix (Clopidogrel Bisulfate) 75 Mg Tab 75 Mg PO DAILY Reported Isosorbide Mononitrate 20 Mg Tab 60 Mg PO BID Take 2 doses 7 hours apart. Novolog Inj (Insulin Aspart) 1,000 Unit/10 Ml Vial 0 SQ DIRECTED Sliding Scale as directed. Lantus Inj (Insulin Glargine) 1,000 Unit/10 Ml Vial 40 Units SQ AC DINNER Lantus Inj (Insulin Glargine) 1,000 Unit/10 Ml Vial 32 Units SQ AC BREAKFAST Aspirin 81 (Aspirin) 81 Mg Tabdr 81 Mg PO HS Omeprazole 20 Mg Tab 20 Mg PO DAILY Amlodipine (Amlodipine Besylate) 10 Mg Tab 10 Mg PO DAILY Metoprolol Tartrate 50 Mg Tab 50 Mg PO BID Atorvastatin (Atorvastatin Calcium) 80 Mg Tab 80 Mg PO HS Review of Systems ROS Limitations: Poor Historian Except as stated in HPI: all other systems reviewed are Neg HENT: No: Headaches, Neck Pain Cardiovascular: No: Chest Pain or Discomfort Respiratory: No: Shortness of Breath Gastrointestinal: No: Nausea, Vomiting Musculoskeletal: Positive: Limited ROM, Pain Skin: Positive Other (abrasion left leg) Neurologic: Positive: Other (history of dementia) Physical Exam Narrative GENERAL: Awake, alert, pleasant 82-year-old male who appears his stated age, limited historian. SKIN: Focused skin assessment warm/dry. Superficial abrasion of the left lower extremity just inferior to the patella. HEAD: Atraumatic. Normocephalic. EYES: No scleral icterus. ENT: No nasal bleeding or discharge. Mucous membranes pink and moist. NECK: Trachea midline. No JVD. CARDIOVASCULAR: Regular rate and rhythm. No murmur appreciated. RESPIRATORY: No accessory muscle use. Clear to auscultation. Breath sounds equal bilaterally. GASTROINTESTINAL: Abdomen soft, non-tender, nondistended. No rebound tenderness. Back: No tenderness over the thoracic or lumbar vertebrae. MUSCULOSKELETAL: Left lower extremity appears shortened and external rotated compared to the right. Positive dorsalis pedal pulses. Tenderness over the lateral left hip. NEUROLOGICAL: Awake and alert. No obvious cranial nerve deficits. Motor grossly within normal limits. Normal speech. Oriented to name but not year or month. PSYCHIATRIC: Appropriate mood and affect; insight and judgment normal. Data Data Last Documented VS Vital Signs Date Time Temp Pulse Resp B/P (MAP) Pulse Ox O2 Delivery O2 Flow Rate FiO2 08/21/17 12:15 94 18 147/67 (93) 97 Room Air 08/21/17 09:41 98.1 Orders Orders Complete Blood Count With Diff (08/21/17 09:37) Prothrombin Time / Inr (Pt) (08/21/17 09:37) Act Partial Throm Time (Ptt) (08/21/17 09:37) Urinalysis - C+S If Indicated (08/21/17 09:37) Type And Screen (08/21/17 09:37) Chest, Single Ap (08/21/17 09:37) Hip, Uni(Ap&Lat) W Ap Pelvis (08/21/17 09:37) Iv Access Insert/Monitor (08/21/17 09:37) Oximetry (08/21/17 09:37) Ice/Cold Pack (08/21/17 09:37) Ecg Monitoring (08/21/17 09:37) Morphine Inj (Morphine Inj) (08/21/17 09:45) Ondansetron Inj (Zofran Inj) (08/21/17 09:45) Sodium Chloride 0.9% Flush (Ns Flush) (08/21/17 09:45) Ct Brain W/O Iv Contrast(Rout) (08/21/17 ) Comprehensive Metabolic Panel (08/21/17 09:56) Admit To Inpatient (08/21/17 ) Code Status (08/21/17 11:21) Vital Signs (Adult) MICHAEL.Q1H (08/21/17 11:21) Activity Bed Rest (08/21/17 11:21) Elevate Head Of Bed (08/21/17 11:21) Neuro Checks . ORDERED (08/21/17 11:21) Diet Npo (08/21/17 Lunch) Sodium Chlor 0.9% 1000 Ml Inj (Ns 1000 M (08/21/17 11:21) Acetaminophen (Tylenol) (08/21/17 11:30) Famotidine Inj (Pepcid Inj) (08/21/17 21:00) Ondansetron Inj (Zofran Inj) (08/21/17 11:30) Albuterol-Ipratropium Neb (Duoneb Neb) (08/21/17 11:30) Complete Blood Count With Diff (08/22/17 04:00) Basic Metabolic Panel (Bmp) (08/22/17 04:00) Magnesium (Mg) (08/22/17 04:00) Phosphorus (Po4) (08/22/17 04:00) Resp Oxygen Urban C Titrat 1-4 L (08/21/17 ) Wind Field Service Manager / Telemetry MICHAEL.Q8H (08/21/17 11:21) Scd Bilateral/Knee High MICHAEL.BID (08/21/17 11:21) ^ Initiate Protocol (08/21/17 11:21) Instruction (08/21/17 11:21) Misc Nursing Information (08/21/17 11:30) Chlorhexidine 2% Cloth (Chlorhexidine 2% (08/22/17 04:00) Chlorhexidine 2% Cloth (Chlorhexidine 2% (08/21/17 11:30) Mrsa Pcr Surveillance (08/21/17 11:21) Docusate Sodium-Senna (Jessica-Colace) (08/21/17 21:00) Magnesium Hydroxide Liq (Milk Of Magnesi (08/21/17 11:30) Sennosides (Senokot) (08/21/17 11:30) Bisacodyl Supp (Dulcolax Supp) (08/21/17 11:30) Lactulose Liq (Lactulose Liq) (08/21/17 11:30) Inpatient Certification (08/21/17 ) Consult Neurosurgery (08/21/17 ) Amlodipine (Norvasc) (08/22/17 09:00) Atorvastatin (Lipitor) (08/21/17 21:00) Isosorbide Mononitrate (Ismo) (08/21/17 21:00) Metoprolol Tartrate (Lopressor) (08/21/17 21:00) Insulin Detemir Inj (Levemir Inj) (08/21/17 21:00) Bedside Glucose . DIRECTED (08/21/17 11:27) Blood Glucose Goal (Criteria) (08/21/17 11:27) Hypoglycemia 70 Mg/Dl Or < (08/21/17 11:27) Notify Dr: Other (08/21/17 11:27) Dextrose 50% In Melissa (Vial) Inj (D50w (Vi (08/21/17 11:30) Glucagon Inj (Glucagon Inj) (08/21/17 11:30) Insulin Aspart Supplemtl Scale (Novolog (08/21/17 11:30) Labetalol Inj (Trandate Inj) (08/21/17 11:30) Hydralazine Inj (Apresoline Inj) (08/21/17 11:30) (Hub Use Only)Inp Phy Cons/Ref (08/21/17 ) Morphine Inj (Morphine Inj) (08/21/17 11:30) Admit Order (Ed Use Only) (08/21/17 12:43) Labs Laboratory Tests Test 08/21/17 09:45 White Blood Count 9.6 TH/MM3 Red Blood Count 3.61 MIL/MM3 Hemoglobin 10.6 GM/DL Hematocrit 30.2 % Mean Corpuscular Volume 83.5 FL Mean Corpuscular Hemoglobin 29.2 PG Mean Corpuscular Hemoglobin Concent 35.0 % Red Cell Distribution Width 14.7 % Platelet Count 155 TH/MM3 Mean Platelet Volume 8.6 FL Neutrophils (%) (Auto) 86.4 % Lymphocytes (%) (Auto) 7.0 % Monocytes (%) (Auto) 5.5 % Eosinophils (%) (Auto) 0.7 % Basophils (%) (Auto) 0.4 % Neutrophils # (Auto) 8.3 TH/MM3 Lymphocytes # (Auto) 0.7 TH/MM3 Monocytes # (Auto) 0.5 TH/MM3 Eosinophils # (Auto) 0.1 TH/MM3 Basophils # (Auto) 0.0 TH/MM3 CBC Comment DIFF FINAL Differential Comment Prothrombin Time 11.2 SEC Prothromb Time International Ratio 1.1 RATIO Activated Partial Thromboplast Time 28.3 SEC Blood Urea Nitrogen 28 MG/DL Creatinine 1.63 MG/DL Random Glucose 81 MG/DL Total Protein 7.8 GM/DL Albumin 3.1 GM/DL Calcium Level 9.1 MG/DL Alkaline Phosphatase 76 U/L Aspartate Amino Transf (AST/SGOT) 39 U/L Alanine Aminotransferase (ALT/SGPT) 19 U/L Total Bilirubin 0.8 MG/DL Sodium Level 140 MEQ/L Potassium Level 3.5 MEQ/L Chloride Level 106 MEQ/L Carbon Dioxide Level 22.9 MEQ/L Anion Gap 11 MEQ/L Estimat Glomerular Filtration Rate 41 ML/MIN [facility] Medical Decision Making Medical Screen Exam Complete: Yes Emergency Medical Condition: Yes Medical Record Reviewed: Yes Interpretation(s) EKG reveals normal sinus rhythm with a rate in 93. Nonspecific ST changes and T -wave changes in the lateral leads. Last Impressions Hip and Pelvis X-Ray [id number] Signed Impressions: Service Date/Time: Monday, August 21, 2017 10:00 - CONCLUSION: Acute left a basi-cervical/intertrochanteric fracture of the left hip Old left superior inferior pubic rami fractures with apparent pseudoarthrosis of the superior pubic ramus. Dionsiio Lane MD Chest X-Ray [id number] Signed Impressions: Service Date/Time: Monday, August 21, 2017 10:00 - CONCLUSION: No acute disease. Dionisio Lane MD Head CT 08/21/17 0000 Signed Impressions: Service Date/Time: Monday, August 21, 2017 10:10 - CONCLUSION: 1. Acute large right-sided subdural hematoma with 5 mm of midline shift. 2. Small right-sided parafalcine subdural hematoma. 3. No evidence of parenchymal hemorrhage, edema or infarct. Dionisio Lane MD Laboratory Tests Test 08/21/17 09:45 White Blood Count 9.6 TH/MM3 Red Blood Count 3.61 MIL/MM3 Hemoglobin 10.6 GM/DL Hematocrit 30.2 % Mean Corpuscular Volume 83.5 FL Mean Corpuscular Hemoglobin 29.2 PG Mean Corpuscular Hemoglobin Concent 35.0 % Red Cell Distribution Width 14.7 % Platelet Count 155 TH/MM3 Mean Platelet Volume 8.6 FL Neutrophils (%) (Auto) 86.4 % Lymphocytes (%) (Auto) 7.0 % Monocytes (%) (Auto) 5.5 % Eosinophils (%) (Auto) 0.7 % Basophils (%) (Auto) 0.4 % Neutrophils # (Auto) 8.3 TH/MM3 Lymphocytes # (Auto) 0.7 TH/MM3 Monocytes # (Auto) 0.5 TH/MM3 Eosinophils # (Auto) 0.1 TH/MM3 Basophils # (Auto) 0.0 TH/MM3 CBC Comment DIFF FINAL Differential Comment Prothrombin Time 11.2 SEC Prothromb Time International Ratio 1.1 RATIO Activated Partial Thromboplast Time 28.3 SEC Blood Urea Nitrogen 28 MG/DL Creatinine 1.63 MG/DL Random Glucose 81 MG/DL Total Protein 7.8 GM/DL Albumin 3.1 GM/DL Calcium Level 9.1 MG/DL Alkaline Phosphatase 76 U/L Aspartate Amino Transf (AST/SGOT) 39 U/L Alanine Aminotransferase (ALT/SGPT) 19 U/L Total Bilirubin 0.8 MG/DL Sodium Level 140 MEQ/L Potassium Level 3.5 MEQ/L Chloride Level 106 MEQ/L Carbon Dioxide Level 22.9 MEQ/L Anion Gap 11 MEQ/L Estimat Glomerular Filtration Rate 41 ML/MIN Differential Diagnosis Differential diagnosis includes hip fracture, hip dislocation, pelvic fracture, abrasion, contusion, closed head injury, intracranial hemorrhage. Narrative Course IV was established, labs are drawn and sent, and the patient was placed on cardiac telemetry monitoring and continuous pulse oximetry monitoring. The patient was administer morphine, Zofran, however, tetanus shot was withheld secondary to allergy to tetanus toxoid. He is unable to tell me his tetanus immunization history. The abrasion was cleaned and a dressing was applied. X- ray of the chest, pelvis, left hip were obtained. X-ray is positive for a left hip fracture. CT was positive for right sided subdural hemorrhage with 5 mm shift. I discussed the patient with your orthopedic surgeon and the neurosurgeon. I discussed the patient with the box attacher, the patient will be admitted. I did have a discussion with the trauma surgeon regarding T x-ray and possibly PCC for subdural hemorrhage, patient is on Plavix, will hold on any prothrombin except this time until evaluated by neurosurgery. The patient will be omitted to the intensive surgical care unit. Critical Care Narrative Aggregate critical care time was 35 minutes. Time to perform other separately billable procedures was not included in the critical care time. My time did not include minutes spent treating any other patients simultaneously or on activities that did not directly contribute to the patient's treatment. The services I provided to this patient were to treat and/or prevent clinically significant deterioration that could result in: Herniation, arrhythmia, . I provided critical care services requiring my management, as noted below: Chart data review, documentation time, medication orders and management, vital sign assessments/reviewing monitor data, ordering and reviewing lab tests, ordering and interpreting/reviewing x-rays and diagnostic studies, care of the patient and discussion of the patient with the admitting physicians. Diagnosis Primary Impression: Traumatic subdural hematoma Qualified Codes: S06.5X0A - Traumatic subdural hemorrhage without loss of consciousness, initial encounter Additional Impression: Closed fracture of left hip requiring operative repair Qualified Codes: S72.002A - Fracture of unspecified part of neck of left femur , initial encounter for closed fracture Admitting Information Admitting Physician Requests: Admit Condition: Serious Juan Pablo Calloway MD Aug 21, 2017 09:43
[2017-08-21] MEDS ORDERED: MORPHINE SULFATE 4 MG/ML INJ IV PUSH ONE (09:45)
[2017-08-21] MEDS ORDERED: SODIUM CHLORIDE 0.9% FLUSH 10 ML FLUSH IVF PRN (09:45)
[2017-08-21] MEDS ORDERED: ONDANSETRON HCL 4 MG/2 ML VIAL IVP ONE (09:45)
[2017-08-21] MEDS ORDERED: ISOS20TA PO (09:55)
[2017-08-21] MEDS ORDERED: NOVOLOGP2 SQ (09:55)
[2017-08-21 10:09] LABS: AUTOMATED NEUTROPHIL # 8.3 TH/MM3 (1.8-7.7); BASOPHIL % 0.4 % (0.0-2.0); EOSINOPHIL # 0.1 TH/MM3 (0-0.4); EOSINOPHIL % 0.7 % (0.0-4.0); HEMATOCRIT 30.2 % (39.0-51.0); HEMOGLOBIN 10.6 GM/DL (13.0-17.0); LYMPHOCYTE # 0.7 TH/MM3 (1.0-4.8); MEAN CELL VOLUME 83.5 FL (80.0-100.0); MEAN CORPUSCULAR HEMOGLOBIN 29.2 PG (27.0-34.0); MEAN PLATELET VOLUME 8.6 FL (7.0-11.0); MONO % 5.5 % (0.0-8.0); MONOCYTE # 0.5 TH/MM3 (0-0.9); NEUT % 86.4 % (16.0-70.0); PLATELET COUNT 155 TH/MM3 (150-450); RED BLOOD COUNT 3.61 MIL/MM3 (4.50-5.90); RED CELL DISTRIBUTION WIDTH 14.7 % (11.6-17.2); WHITE BLOOD COUNT 9.6 TH/MM3 (4.0-11.0)
[2017-08-21 10:17] LABS: INTERNATIONAL NORMALIZED RATIO 1.1 RATIO; PROTHROMBIN TIME - PATIENT 11.2 SEC (9.8-11.6)
[2017-08-21 10:22] LABS: ALBUMIN 3.1 GM/DL (3.4-5.0); ALT (GPT) 19 U/L (12-78); AST (GOT) 39 U/L (15-37); BICARBONATE 22.9 MEQ/L (21.0-32.0); BLOOD UREA NITROGEN 28 MG/DL (7-18); CALCIUM 9.1 MG/DL (8.5-10.1); CHLORIDE 106 MEQ/L (98-107); CREATININE 1.63 MG/DL (0.60-1.30); GLOMERULAR FILTRATION RATE 41 ML/MIN (>89); GLUCOSE,RANDOM 81 MG/DL (74-106); SODIUM (NA) 140 MEQ/L (136-145)
[2017-08-21 10:24] LABS: ALKALINE PHOSPHATASE 76 U/L (45-117); TOTAL BILIRUBIN ADULT 0.8 MG/DL (0.2-1.0); TOTAL PROTEIN 7.8 GM/DL (6.4-8.2)
--- NOTE | 2017-08-21 10:26 | RADRPT ---
EXAM DATE/TIME: 08/21/2017 10:00 [facility] COMPARISON: CHEST SINGLE AP, November 21, 2016, 0:05. INDICATIONS : Fall this morning, unknown cause do to patient confusion. MEDICAL HISTORY : None. SURGICAL HISTORY : Stent. ENCOUNTER: Initial ACUITY: 1 day PAIN SCORE: Non-responsive. LOCATION: Bilateral chest FINDINGS: A single view of the chest demonstrates the lungs to be symmetrically aerated without evidence of mas s, infiltrate or effusion. The cardiomediastinal contours are unremarkable. Osseous structures are intact. CONCLUSION: No acute disease. Dionisio Lane MD on August 21, 2017 at 10:24 Board Certified Radiologist. This report was verified electronically.
--- NOTE | 2017-08-21 10:26 | RADRPT ---
EXAM DATE/TIME: 08/21/2017 10:10 [facility] COMPARISON: CT BRAIN W/O CONTRAST, November 21, 2016, 11:30. INDICATIONS : Trauma, fall today. RADIATION DOSE: 56.35 CTDIvol (mGy) MEDICAL HISTORY : Carcinoma, prostate. Hypertension. diabetes SURGICAL HISTORY : eye prosthesis ENCOUNTER: Initial ACUITY: 1 day PAIN SCALE: Non-responsive LOCATION: Bilateral head TECHNIQUE: Multiple contiguous axial images were obtained of the head. Using automated exposure control and adj ustment of the mA and/or kV according to patient size, radiation dose was kept as low as reasonably a chievable to obtain optimal diagnostic quality images. DICOM format image data is available electro nically for review and comparison. FINDINGS: A large crescent shaped hyperdense extra-axial fluid collection is seen along the right cerebral ashlie sphere. The collection extends from the temporal lobe to the convexity. It measures 12 mm in greatest width. There is significant mass effect with right to left shift of midline structures measuring 5 m m. A smaller extra-axial collection is seen along the right side of the falx cerebri. There is no evidence of parenchymal hematoma, infarct or edema. CSF spaces are large. Brainstem and cerebellum are unremarkable. Mucosal thickening and minimal fluid accumulation is identified in the paranasal sinuses. Calvarium is intact. CONCLUSION: 1. Acute large right-sided subdural hematoma with 5 mm of midline shift. 2. Small right-sided parafalcine subdural hematoma. 3. No evidence of parenchymal hemorrhage, edema or infarct. Dionisio Lane MD on August 21, 2017 at 10:20 Board Certified Radiologist. This report was verified electronically.
--- NOTE | 2017-08-21 10:30 | RADRPT ---
EXAM DATE/TIME: 08/21/2017 10:00 [facility] COMPARISON: No previous studies available for comparison. INDICATIONS : Fall this morning, unknown cause do to patient being confused. MEDICAL HISTORY : Unable to obatin. SURGICAL HISTORY : Heart stent. ENCOUNTER: Initial ACUITY: 1 day PAIN SCORE: Non-responsive. LOCATION: Left pelvis Hip FINDINGS: A mildly angulated fracture is identified through the base of the left femoral neck. Fracture line is also noted extending along the inner trochanteric ridge. Femoral head remains well-seated within the acetabulum. There is no significant arthropathy. Left-sided superior and inferior pubic rami fractures are noted. There is sclerosis along the fractur e margins and marginal spur formation indicating that these are chronic. CONCLUSION: Acute left a basi-cervical/intertrochanteric fracture of the left hip Old left superior inferior pubic rami fractures with apparent pseudoarthrosis of the superior pubic r amus. Dionisio Lane MD on August 21, 2017 at 10:25 Board Certified Radiologist. This report was verified electronically.
[2017-08-21] MEDS ORDERED: MAGNESIUM HYDROXIDE SUSP 30 ML CUP PO PRN (11:30)
[2017-08-21] MEDS: INSULIN ASPART SUPPLEMENTAL SCALE SQ SCH ×4 (11:30→23:30)
[2017-08-21] MEDS ORDERED: RESP: ALBUTEROL 2.5 MG/IPRATROPIUM 0.5 MG NEB (PRN) INH (11:30)
[2017-08-21] MEDS ORDERED: ACETAMINOPHEN 325 MG TAB PO PRN (11:30)
[2017-08-21] MEDS ORDERED: LABETALOL HCL 100 MG/20 ML VIAL IV PUSH PRN (11:30)
[2017-08-21] MEDS ORDERED: LACTULOSE SYRUP 20 GM/30 ML CUP PO PRN (11:30)
[2017-08-21] MEDS ORDERED: ONDANSETRON HCL 4 MG/2 ML VIAL IV PUSH PRN (11:30)
[2017-08-21] MEDS ORDERED: DEXTROSE 50% IN WATER 50 ML VIAL(D50) IV PUSH PRN (11:30)
[2017-08-21] MEDS ORDERED: SENNOSIDES 8.6 MG TAB PO PRN (11:30)
[2017-08-21] MEDS ORDERED: MISCELLANEOUS NURSING INFORMATION XX SCH (11:30)
[2017-08-21] MEDS ORDERED: BISACODYL 10 MG SUPP RECTAL PRN (11:30)
[2017-08-21] MEDS ORDERED: GLUCAGON 1 MG/ML VIAL OTHER PRN (11:30)
[2017-08-21] MEDS ORDERED: hydrALAZINE HCL 20 MG/ML VIAL IV PUSH PRN (11:30)
[2017-08-21] MEDS ORDERED: CHLORHEXIDINE GLUCONATE 2 % 1 PACK (2 CLOTHS) TOP PRN (11:30)
--- NOTE | 2017-08-21 11:49 | HHI.HP ---
[facility] Service Critical Care Medicine Primary Care Physician [facility] Admission Diagnosis Traumatic Subdural Hematoma Diagnosis: (1) Traumatic subdural hematoma Diagnosis: Principal (2) Closed fracture of left hip requiring operative repair Diagnosis: Principal (3) Diabetes mellitus type 2 with complications Diagnosis: Secondary (4) Coronary artery disease Diagnosis: Secondary (5) DM (diabetes mellitus) Diagnosis: Secondary Chief Complaint: Left hip pain, headache Travel History International Travel<30 Days: No Contact w/Intl Traveler <30 Da: No Traveled to Known Affected Are: No History of Present Illness 82 y/o man on ASA and Plavix for CAD and stent fell and hit his head last night. Difficulty walking today. In ED he has a moderate-large right traumatic SDH with subfalcine shift away and a closed fracture of the left hip. Neurological exam is complicated by chronic dementia. Care is complicated by long-term insulin dependent diabetes and critical calcific aortic stenosis. Review of Systems Constitutional: DENIES: Diaphoretic episodes, Fatigue, Fever, Weight gain, Weight loss, Chills, Dizziness, Change in appetite, Night Sweats Endocrine: DENIES: Heat/cold intolerance, Polydipsia, Polyuria, Polyphagia Eyes: DENIES: Blurred vision, Diplopia, Eye inflammation, Eye pain, Vision loss , Photosensitivity, Double Vision Ears, nose, mouth, throat: DENIES: Tinnitus, Hearing loss, Vertigo, Nasal discharge, Oral lesions, Throat pain, Hoarseness, Ear Pain, Running Nose, Epistaxis, Sinus Pain, Toothache, Odynophagia Respiratory: DENIES: Apneas, Cough, Snoring, Wheezing, Hemoptysis, Sputum production, Shortness of breath Cardiovascular: DENIES: Chest pain, Palpitations, Syncope, Dyspnea on Exertion , PND, Lower Extremity Edema, Orthopnea, Claudication Gastrointestinal: DENIES: Abdominal pain, Black stools, Bloody stools, Constipation, Diarrhea, Nausea, Vomiting, Difficulty Swallowing, Anorexia Genitourinary: DENIES: Sexual dysfunction, Urinary frequency, Urinary incontinence, Urgency, Hematuria, Dysuria, Nocturia, Penile Discharge, Testicular Pain, Testicular Swelling Musculoskeletal: COMPLAINS OF: Joint pain Integumentary: DENIES: Abnormal pigmentation, Nail changes, Pruritus, Rash Immunologic/allergic: DENIES: Eczema, Urticaria Neurologic: COMPLAINS OF: Abnormal gait, Headache Past Family Social History Allergies: Coded Allergies: FD and C yellow no.10 (quinoline ye (Unverified Allergy, Severe, 08/21/17) causes swelling egg (Unverified Allergy, Severe, 08/21/17) causes swelling at inj site when shot has egg diretive tetanus toxoid, adsorbed (Unverified Allergy, Severe, 08/21/17) swelling due to egg deritive Uncoded Allergies: Yellow Dye #3 and #4 (Allergy, Severe, 10/05/14) . Past Medical History Past Medical History Arthritis: No Asthma: Yes Autoimmune Disease: No Anxiety: No Depression: No Heart Rhythm Problems: No Cancer: Yes (prostate) Cardiac Catheterization: Yes (X2) Cardiovascular Problems: Yes (mod to severe aortic sclerosis, mild aortic valve stenosis) High Cholesterol: Yes Chemotherapy: No Chest Pain: Yes Congestive Heart Failure: No COPD: Yes Cerebrovascular Accident: No Coronary Artery Disease: Yes Dementia: Yes Diabetes: Yes (TYPE 2) Diminished Hearing: No Endocrine: Yes Gastrointestinal Disorders: Yes GERD: Yes Glaucoma: No Genitourinary: Yes Headaches: Yes Hepatitis: No Hiatal Hernia: No Hypertension: Yes Immune Disorder: No Kidney Stones: Yes Musculoskeletal: No Neurologic: Yes Psychiatric: No Reproductive: No Respiratory: Yes (copd and asthma) Immunizations Current: Yes (PT ALLERGIC TO TETANUS) Migraines: No Radiation Therapy: Yes Renal Failure: No Seizures: No Sickle Cell Disease: No Sleep Apnea: No Thyroid Disease: No Ulcer: No Past Surgical History Abdominal Surgery: Yes (appendectomy) AICD: No Appendectomy: Yes Arteriovenous Shunt: No Body Medical Devices: STENTS Cardiac Surgery: No Coronary Stent: Yes (x1) Ear Surgery: No Endocrine Surgery: No Eye Surgery: Yes (LENS IMPLANTS GREGORY) Genitourinary Surgery: Yes (EXC. PENILE ABSCESS, LITHOTRIPSY prostate bx) Gynecologic Surgery: No Insulin Pump: No Joint Replacement: No Oral Surgery: Yes Pacemaker: No Thoracic Surgery: No Tonsillectomy: Yes Other Surgery: Yes (HEMORRHOIDECTOMY) Social History Alcohol Use: No Tobacco Use: No (quit 20+ yrs ago smoked 1 ppd) Substance Use: No Allergies-Medications Allergies-Medications (Allergen,Severity, Reaction): Coded Allergies: FD and C yellow no.10 (quinoline ye (Unverified Allergy, Severe, 08/21/17) causes swelling egg (Unverified Allergy, Severe, 08/21/17) causes swelling at inj site when shot has egg diretive tetanus toxoid, adsorbed (Unverified Allergy, Severe, 08/21/17) swelling due to egg deritive Uncoded Allergies: Yellow Dye #3 and #4 (Allergy, Severe, 10/05/14) . Reported Meds & Prescriptions Reported Meds & Active Scripts Active Lopressor (Metoprolol Tartrate) 50 Mg Tab 75 Mg PO BID Plavix (Clopidogrel Bisulfate) 75 Mg Tab 75 Mg PO DAILY Reported Lantus Inj (Insulin Glargine) 1,000 Unit/10 Ml Vial 40 Units SQ AC DINNER Lantus Inj (Insulin Glargine) 1,000 Unit/10 Ml Vial 32 Units SQ AC BREAKFAST Humalog Inj (Insulin Human Lispro) 1,000 Unit/10 Ml Vial 5 Units SQ TIDAC take 8 units morning and afternoon before breakfast and lunch and 12 units before dinner Nitroglycerin 5 Mg/Ml Inj Aspirin 81 (Aspirin) 81 Mg Tabdr 81 Mg PO HS Omeprazole 20 Mg Tab 20 Mg PO DAILY Lisinopril 40 Mg Tab 40 Mg PO DAILY Amlodipine (Amlodipine Besylate) 10 Mg Tab 10 Mg PO DAILY Metoprolol Tartrate 50 Mg Tab 50 Mg PO BID Atorvastatin (Atorvastatin Calcium) 80 Mg Tab 80 Mg PO HS Physical Exam Vital Signs Vital Signs Date Time Temp Pulse Resp B/P (MAP) Pulse Ox O2 Delivery O2 Flow Rate FiO2 08/21/17 11:10 97 19 156/70 (98) 97 Room Air 08/21/17 10:15 92 17 157/72 (100) 98 Room Air 08/21/17 09:43 98 Room Air 08/21/17 09:41 98.1 93 17 197/80 (119) 98 Physical Exam Gen: Responsive, cooperative. Head: Normal. Tender left side skull. Neck: Chronically stiff, airway widely patent. Lungs: Clear, no adventitious sounds. Heart: NL S1S2, 4/6 systolic murmur radiates to both carotids. No JVD. Abdomen: Soft, no guarding. nontender. BS active. Extremities: Well perfused. Left hip tender to palpation, left foot externally rotated. Neuro: Moves 4 limbs to stimulation. Stubborn but responds to voice most times. Pupils 2 mm, reactive. EOM intact. Speech clear. Laboratory Laboratory Tests Test 08/21/17 09:45 White Blood Count 9.6 Red Blood Count 3.61 Hemoglobin 10.6 Hematocrit 30.2 Mean Corpuscular Volume 83.5 Mean Corpuscular Hemoglobin 29.2 Mean Corpuscular Hemoglobin Concent 35.0 Red Cell Distribution Width 14.7 Platelet Count 155 Mean Platelet Volume 8.6 Neutrophils (%) (Auto) 86.4 Lymphocytes (%) (Auto) 7.0 Monocytes (%) (Auto) 5.5 Eosinophils (%) (Auto) 0.7 Basophils (%) (Auto) 0.4 Neutrophils # (Auto) 8.3 Lymphocytes # (Auto) 0.7 Monocytes # (Auto) 0.5 Eosinophils # (Auto) 0.1 Basophils # (Auto) 0.0 CBC Comment DIFF FINAL Differential Comment Prothrombin Time 11.2 Prothromb Time International Ratio 1.1 Activated Partial Thromboplast Time 28.3 Blood Urea Nitrogen 28 Creatinine 1.63 Random Glucose 81 Total Protein 7.8 Albumin 3.1 Calcium Level 9.1 Alkaline Phosphatase 76 Aspartate Amino Transf (AST/SGOT) 39 Alanine Aminotransferase (ALT/SGPT) 19 Total Bilirubin 0.8 Sodium Level 140 Potassium Level 3.5 Chloride Level 106 Carbon Dioxide Level 22.9 Anion Gap 11 Estimat Glomerular Filtration Rate 41 Result Diagram: 08/21/1745 08/21/1745 Caprini VTE Risk Assessment Caprini VTE Risk Assessment: Mod/High Risk (score >= 2) VTE Pharm Contraindication: Active bleeding Caprini Risk Assessment Model Point Value = 1 Point Value = 2 Point Value = 3 Point Value = 5 Age 41-60 Minor surgery BMI > 25 kg/m2 Swollen legs Varicose veins or History of unexplained or recurrent spontaneous Oral contraceptives or hormone replacement Sepsis (< 1 month) Serious lung disease, including pneumonia (< 1 month) Abnormal pulmonary function Acute myocardial infarction Congestive heart failure (< 1 month) History of inflammatory bowel disease Medical patient at bed rest Age 61-74 Arthroscopic surgery Major open surgery (> 45 min) Laparoscopic surgery (> 45 min) Malignancy Confined to bed (> 72 hours) Immobilizing plaster cast Central venous access Age >= 75 History of VTE Family history of VTE Factor V Leiden Prothrombin [id number] Lupus anticoagulant Anticardiolipin antibodies Elevated serum homocysteine Heparin-induced thrombocytopenia Other congenital or acquired thrombophilia Stroke (< 1 month) Elective arthroplasty Hip, pelvis, or leg fracture Acute spinal cord injury (< 1 month) Prophylaxis Regimen Total Risk Factor Score Risk Level Prophylaxis Regimen 0-1 Low Early ambulation 2 Moderate Order ONE of the following: *Sequential Compression Device (SCD) *Heparin 5000 units SQ BID 3-4 Higher Order ONE of the following medications: *Heparin 5000 units SQ TID *Enoxaparin/Lovenox 40 mg SQ daily (WT < 150 kg, CrCl > 30 mL/min) *Enoxaparin/Lovenox 30 mg SQ daily (WT < 150 kg, CrCl > 10-29 mL/min) *Enoxaparin/Lovenox 30 mg SQ BID (WT < 150 kg, CrCl > 30 mL/min) AND/OR *Sequential Compression Device (SCD) 5 or more Highest Order ONE of the following medications: *Heparin 5000 units SQ TID (Preferred with Epidurals) *Enoxaparin/Lovenox 40 mg SQ daily (WT < 150 kg, CrCl > 30 mL/min) *Enoxaparin/Lovenox 30 mg SQ daily (WT < 150 kg, CrCl > 10-29 mL/min) *Enoxaparin/Lovenox 30 mg SQ BID (WT < 150 kg, CrCl > 30 mL/min) AND *Sequential Compression Device (SCD) Assessment and Plan Problem List: (1) Traumatic subdural hematoma ICD Code: S06.5X9A - Traumatic subdural hemorrhage with loss of consciousness of unspecified duration, initial encounter Status: Acute (2) Closed fracture of left hip requiring operative repair ICD Code: S72.002A - Fracture of unspecified part of neck of left femur, initial encounter for closed fracture (3) Aortic stenosis, severe ICD Code: I35.0 - Nonrheumatic aortic (valve) stenosis Status: Chronic Permanent Comment: Peak gradient 76 mm Hg, mean gradient 46, area 0.64 cm square Last Edited By: Royce Torres on Aug 21, 2017 14:00 (4) Diabetes mellitus type 2 with complications ICD Code: E11.8 - Type 2 diabetes mellitus with unspecified complications Status: Chronic (5) Coronary artery disease ICD Code: I25.10 - Atherosclerotic heart disease of [place] coronary artery without angina pectoris Status: Chronic Assessment and Plan Assessment: 1. Traumatic SDH. 2. Closed fracture left hip 3. DB, 2, insulin dependent. 4. Dementia 5. Critical Calcific Aortic Stenosis (Peak gradient 76, mean 46, area 0.64 cm square)) Plan: 1. Admit ICU. 2. Platelets for ongoing bleeding. 3. No chemical DVT px. 4. Pepcid. 5. SCDs. 6. Neuro checks. 7. Neurosurgery Consult. 8. BP < 160/100 9. NPO excepts meds, sips water. 10. Levemir bid and SSI. 11. Immobilize left hip. 12. Avoid hypotension. Overall impression: Patient is critically ill with a potentially life- threatening head injury, complicated by his dual antiplatelet therapy and an acute fracture of the left hip. His severe aortic stenosis adds considerable risk to any procedure. Critical Care 40 mins Problem Qualifiers (1) Traumatic subdural hematoma: Qualified Codes: S06.5X0A - Traumatic subdural hemorrhage without loss of consciousness, initial encounter (2) Closed fracture of left hip requiring operative repair: Qualified Codes: S72.002A - Fracture of unspecified part of neck of left femur , initial encounter for closed fracture (3) Diabetes mellitus type 2 with complications: Qualified Codes: E11.8 - Type 2 diabetes mellitus with unspecified complications (4) Coronary artery disease: Qualified Codes: I25.118 - Atherosclerotic heart disease of [place] coronary artery with other forms of angina pectoris (5) DM (diabetes mellitus): Bijan Torres MD Aug 21, 2017 11:49
[2017-08-21] MEDS: SODIUM CHLOR 0.9% 1000 ML INJ 1,000 ML IV SCH ×2 (12:29→23:28)
--- NOTE | 2017-08-21 14:58 | EKG ---
Date Performed: 08/21/2017 Time Performed: 09:47:44 PTAGE: 82 years EKG: Sinus rhythm Nonspecific ST and T wave abnormalities ABNORMAL ECG Compared to prior electrocardiogram, rate has i ncreased PREVIOUS TRACING : 11/21/2016 06.25 DOCTOR: Wong rGay Interpretating Date/Time 08/21/2017 14:57:09
--- NOTE | 2017-08-21 18:29 | PD.CONS ---
History of Present Illness Service Neurosurgery Consult Requested By Cilnical Scientist Reason for Consult Traumatic brain injury-subdural hematoma Primary Care Physician [place] Diagnoses: History of Present Illness The patient is an 82-year-old male who fell at home, striking his head last evening. Today the patient was noted to have increased gait difficulty with some mental status changes. No seizure activity or emesis reported. The patient has a history of coronary artery disease status post stent placement and is on aspirin and Plavix. Review of Systems The patient has a history of underlying dementia and has difficulty providing a accurate review of systems. Past Family Social History Allergies: Coded Allergies: FD and C yellow no.10 (quinoline ye (Unverified Allergy, Severe, 08/21/17) causes swelling egg (Unverified Allergy, Severe, 08/21/17) causes swelling at inj site when shot has egg diretive tetanus toxoid, adsorbed (Unverified Allergy, Severe, 08/21/17) swelling due to egg deritive Uncoded Allergies: Yellow Dye #3 and #4 (Allergy, Severe, 10/05/14) . Past Medical History Coronary artery disease Hypertension Aortic stenosis Hypercholesterolemia COPD Asthma Diabetes Dementia GERD Past Surgical History Appendectomy Cardiac stent Bilateral ocular lens implant Reported Medications Reported Meds & Active Scripts Active Plavix (Clopidogrel Bisulfate) 75 Mg Tab 75 Mg PO DAILY Reported Isosorbide Mononitrate 20 Mg Tab 60 Mg PO BID Take 2 doses 7 hours apart. Novolog Inj (Insulin Aspart) 1,000 Unit/10 Ml Vial 0 SQ DIRECTED Sliding Scale as directed. Lantus Inj (Insulin Glargine) 1,000 Unit/10 Ml Vial 40 Units SQ AC DINNER Lantus Inj (Insulin Glargine) 1,000 Unit/10 Ml Vial 32 Units SQ AC BREAKFAST Aspirin 81 (Aspirin) 81 Mg Tabdr 81 Mg PO HS Omeprazole 20 Mg Tab 20 Mg PO DAILY Amlodipine (Amlodipine Besylate) 10 Mg Tab 10 Mg PO DAILY Metoprolol Tartrate 50 Mg Tab 50 Mg PO BID Atorvastatin (Atorvastatin Calcium) 80 Mg Tab 80 Mg PO HS Social History Quit smoking 20 years ago No alcohol Physical Exam Vital Signs Vital Signs Date Time Temp Pulse Resp B/P (MAP) Pulse Ox O2 Delivery O2 Flow Rate FiO2 08/21/17 16:00 100.9 97 14 149/67 (94) 95 3/10/18 15:33 93 21 08/21/17 15:00 96 08/21/17 13:15 97.8 77 28 149/69 (95) 94 08/21/17 13:10 90 17 133/63 (86) 97 08/21/17 12:15 94 18 147/67 (93) 97 Room Air 08/21/17 11:10 97 19 156/70 (98) 97 Room Air 08/21/17 10:15 92 17 157/72 (100) 98 Room Air 08/21/17 09:43 98 Room Air 08/21/17 09:41 98.1 93 17 197/80 (119) 98 Physical Exam GENERAL: This is a well-nourished, well-developed patient, in no apparent distress. SKIN: No rashes, ecchymoses or lesions. Cool and dry. HEAD: Atraumatic. Normocephalic. No temporal or scalp tenderness. EYES: Pupils equal round and reactive. Extraocular motions intact. No scleral icterus. No injection or drainage. ENT: Nose without bleeding, purulent drainage or septal hematoma. Throat without erythema, tonsillar hypertrophy or exudate. Uvula midline. Airway patent. NECK: Trachea midline. No JVD or lymphadenopathy. Supple, nontender, no meningeal signs. CARDIOVASCULAR: Regular rate and rhythm without murmurs, gallops, or rubs. RESPIRATORY: Clear to auscultation. Breath sounds equal bilaterally. No wheezes , rales, or rhonchi. GASTROINTESTINAL: Abdomen soft, non-tender, nondistended. No hepato-splenomegaly , or palpable masses. No guarding. MUSCULOSKELETAL: Extremities without clubbing, cyanosis, or edema. No joint tenderness, effusion, or edema noted. No calf tenderness. Negative Homans sign bilaterally. NEUROLOGICAL: Awake and alert. Cranial nerves II through XII intact. Motor and sensory grossly within normal limits. Five out of 5 muscle strength in all muscle groups. Normal speech. Laboratory Laboratory Tests Test 08/21/17 09:45 White Blood Count 9.6 Red Blood Count 3.61 Hemoglobin 10.6 Hematocrit 30.2 Mean Corpuscular Volume 83.5 Mean Corpuscular Hemoglobin 29.2 Mean Corpuscular Hemoglobin Concent 35.0 Red Cell Distribution Width 14.7 Platelet Count 155 Mean Platelet Volume 8.6 Neutrophils (%) (Auto) 86.4 Lymphocytes (%) (Auto) 7.0 Monocytes (%) (Auto) 5.5 Eosinophils (%) (Auto) 0.7 Basophils (%) (Auto) 0.4 Neutrophils # (Auto) 8.3 Lymphocytes # (Auto) 0.7 Monocytes # (Auto) 0.5 Eosinophils # (Auto) 0.1 Basophils # (Auto) 0.0 CBC Comment DIFF FINAL Differential Comment Prothrombin Time 11.2 Prothromb Time International Ratio 1.1 Activated Partial Thromboplast Time 28.3 Blood Urea Nitrogen 28 Creatinine 1.63 Random Glucose 81 Total Protein 7.8 Albumin 3.1 Calcium Level 9.1 Alkaline Phosphatase 76 Aspartate Amino Transf (AST/SGOT) 39 Alanine Aminotransferase (ALT/SGPT) 19 Total Bilirubin 0.8 Sodium Level 140 Potassium Level 3.5 Chloride Level 106 Carbon Dioxide Level 22.9 Anion Gap 11 Estimat Glomerular Filtration Rate 41 Result Diagram: 08/21/1745 08/21/1745 Imaging 08/21/2017 CT scan head images reviewed by the undersigned. There is an acute right hemisphere subdural hematoma measuring approximately 12 mm maximum thickness with 5 mm midline shift. There is effacement of the sulci across her right hemisphere as well as approximately 50% effacement of the right lateral ventricle. The cisterns remain open Hip and Pelvis X-Ray 08/21/17936 Signed Impressions: Service Date/Time: Monday, August 21, 2017 10:00 - CONCLUSION: Acute left a basi-cervical/intertrochanteric fracture of the left hip Old left superior inferior pubic rami fractures with apparent pseudoarthrosis of the superior pubic ramus. Dionisio Lane MD Chest X-Ray 08/21/17936 Signed Impressions: Service Date/Time: Monday, August 21, 2017 10:00 - CONCLUSION: No acute disease. Dionisio Lane MD Head CT 08/21/17 0000 Signed Impressions: Service Date/Time: Monday, August 21, 2017 10:10 - CONCLUSION: 1. Acute large right-sided subdural hematoma with 5 mm of midline shift. 2. Small right-sided parafalcine subdural hematoma. 3. No evidence of parenchymal hemorrhage, edema or infarct. Dionisio Lane MD Assessment and Plan Assessment and Plan Impression: 1. Acute right hemisphere subdural hematoma with moderate mass effect 2. Coronary artery disease-on aspirin and Plavix 3. Diabetes 4. Hypertension 5. Dementia 6. COPD and asthma Recommendations: The patient has been admitted to the intensive surgical care unit for close neurologic checks and vital signs. Continue home antihypertensive medications. Insulin sliding scale Hold aspirin and Plavix We will require surgical evacuation of the acute subdural hematoma. As long as he remains neurologically stable with no evidence of hematoma progression on follow-up CT scan would prefer to perform surgery on a delayed basis to allow the patient to have a few days off of aspirin and Plavix due to the increased risk of recurrence postoperative subdural hematoma with antiplatelet therapy. Justin Valedz MD Aug 21, 2017 18:29
--- NOTE | 2017-08-21 18:50 | PD.CONS ---
HPI Service Orthopedic Surgeons Consult Requested By Reason for Consult Left hip fracture Primary Care Physician [facility] Admission Diagnosis Traumatic Subdural Hematoma Diagnoses: (1) Traumatic subdural hematoma Diagnosis: Principal (2) Closed fracture of left hip requiring operative repair Diagnosis: Principal (3) Diabetes mellitus type 2 with complications Diagnosis: Secondary (4) Coronary artery disease Diagnosis: Secondary (5) DM (diabetes mellitus) Diagnosis: Secondary Chief Complaint: Left hip pain History of Present Illness 82 y/o man on ASA and Plavix for CAD and stent fell and hit his head last night. Difficulty walking today. In ED he has a moderate-large right traumatic SDH with midline shift away and a closed fracture of the left hip. Patient has chronic dementia and I'm unable to obtain further history of present illness Review of Systems ROS Limitations: Altered Mental Status (baseline dementia, very poor historian and will not cooperate with answering questions) Past Family Social History Past Medical History Past Medical History Coronary artery disease Hypertension Aortic stenosis Hypercholesterolemia COPD Asthma Diabetes Dementia GERD Past Surgical History Past Surgical History Appendectomy Cardiac stent Bilateral ocular lens implant Reported Medications Of note, on Plavix and aspirin. Otherwise see full list in chart Allergies: Coded Allergies: FD and C yellow no.10 (quinoline ye (Unverified Allergy, Severe, 08/21/17) causes swelling egg (Unverified Allergy, Severe, 08/21/17) causes swelling at inj site when shot has egg diretive tetanus toxoid, adsorbed (Unverified Allergy, Severe, 08/21/17) swelling due to egg deritive Uncoded Allergies: Yellow Dye #3 and #4 (Allergy, Severe, 10/05/14) . Active Ordered Medications Current Medications Medications (Trade) Dose Ordered Sig/Saundra Route Start Time Stop Time Status Last Admin (NS Flush) 2 ml UNSCH PRN IVF 08/21/17 09:45 Sodium Chloride 1,000 ml @ 84 mls/hr [id number] IV 08/21/17 11:21 08/21/17 12:29 (Tylenol) 650 mg Q6H PRN PO 08/21/17 11:30 (Morphine Inj) 2 mg Q2H PRN IV PUSH 08/21/17 11:30 (Pepcid Inj) 20 mg Q12HR IV PUSH 08/21/17 21:00 (Zofran Inj) 4 mg Q6H PRN IV PUSH 08/21/17 11:30 (Duoneb Neb) 1 ampule Q4HR NEB PRN INH 08/21/17 11:30 Miscellaneous Information 1 [id number] XX 08/21/17 11:30 (Chlorhexidine 2% Cloth) 3 pack Taper DAILY@04 TOP 08/22/17 04:00 08/18/18 03:59 (Chlorhexidine 2% Cloth) 3 pack UNSCH PRN TOP 08/21/17 11:30 (Jessica-Colace) 1 tab BID PO 08/21/17 21:00 (Milk Of Magnesia Liq) 30 ml Q12H PRN PO 08/21/17 11:30 (Senokot) 17.2 mg Q12H PRN PO 08/21/17 11:30 (Dulcolax Supp) 10 mg DAILY PRN RECTAL 08/21/17 11:30 (Lactulose Liq) 30 ml DAILY PRN PO 08/21/17 11:30 (Norvasc) 10 mg DAILY PO 08/22/17 09:00 (Lipitor) 80 mg HS PO 08/21/17 21:00 (Ismo) 60 mg BID PO 08/21/17 21:00 (Lopressor) 50 mg BID PO 08/21/17 21:00 (D50w (Vial) Inj) 50 ml UNSCH PRN IV PUSH 08/21/17 11:30 (Glucagon Inj) 1 mg UNSCH PRN OTHER 08/21/17 11:30 (NovoLOG SUPPLEMENTAL SCALE) 1 Q4H SQ 08/21/17 11:30 (Trandate Inj) 20 mg Q3H PRN IV PUSH 08/21/17 11:30 (Apresoline Inj) 10 mg Q1H PRN IV PUSH 08/21/17 11:30 08/21/17 15:24 (Levemir Inj) 10 units Q12HR SQ 08/21/17 21:00 Reported Meds & Active Scripts Active Plavix (Clopidogrel Bisulfate) 75 Mg Tab 75 Mg PO DAILY Reported Isosorbide Mononitrate 20 Mg Tab 60 Mg PO BID Take 2 doses 7 hours apart. Novolog Inj (Insulin Aspart) 1,000 Unit/10 Ml Vial 0 SQ DIRECTED Sliding Scale as directed. Lantus Inj (Insulin Glargine) 1,000 Unit/10 Ml Vial 40 Units SQ AC DINNER Lantus Inj (Insulin Glargine) 1,000 Unit/10 Ml Vial 32 Units SQ AC BREAKFAST Aspirin 81 (Aspirin) 81 Mg Tabdr 81 Mg PO HS Omeprazole 20 Mg Tab 20 Mg PO DAILY Amlodipine (Amlodipine Besylate) 10 Mg Tab 10 Mg PO DAILY Metoprolol Tartrate 50 Mg Tab 50 Mg PO BID Atorvastatin (Atorvastatin Calcium) 80 Mg Tab 80 Mg PO HS Family History Noncontributory Social History Nonsmoker Physical Exam Vital Signs Vital Signs Date Time Temp Pulse Resp B/P (MAP) Pulse Ox O2 Delivery O2 Flow Rate FiO2 08/21/17 16:00 100.9 97 14 149/67 (94) 95 08/21/17 15:33 93 21 08/21/17 15:00 96 08/21/17 13:15 97.8 77 28 149/69 (95) 94 08/21/17 13:10 90 17 133/63 (86) 97 08/21/17 12:15 94 18 147/67 (93) 97 Room Air 08/21/17 11:10 97 19 156/70 (98) 97 Room Air 08/21/17 10:15 92 17 157/72 (100) 98 Room Air 08/21/17 09:43 98 Room Air 08/21/17 09:41 98.1 93 17 197/80 (119) 98 Physical Exam Awake, alert, no acute distress. Baseline dementia. Uncooperative with full neuro and motor exam. Does not fully answer questions. Normocephalic Pupils equal No JVD Moist mucous membranes Nonlabored respirations Regular rate Soft nontender abdomen BUE: No tenderness palpation or visible deformities. Allows full passive range of motion without visible discomfort. Sensation appears grossly intact. Radial pulses palpable. LLE: Positive logroll. Will not allow full assessment of left lower extremity due to discomfort. Does damage a positive EHL, FHL, dorsiflexion, plantar flexion. Sensation appears grossly intact. Brisk cap refill. Right lower extremity: No tenderness palpation or visible deformities. Allows full passive range of motion without visible discomfort. Sensation appears grossly intact. Brisk cap refill No rash Normal affect Laboratory Laboratory Tests Test 08/21/17 09:45 White Blood Count 9.6 Red Blood Count 3.61 Hemoglobin 10.6 Hematocrit 30.2 Mean Corpuscular Volume 83.5 Mean Corpuscular Hemoglobin 29.2 Mean Corpuscular Hemoglobin Concent 35.0 Red Cell Distribution Width 14.7 Platelet Count 155 Mean Platelet Volume 8.6 Neutrophils (%) (Auto) 86.4 Lymphocytes (%) (Auto) 7.0 Monocytes (%) (Auto) 5.5 Eosinophils (%) (Auto) 0.7 Basophils (%) (Auto) 0.4 Neutrophils # (Auto) 8.3 Lymphocytes # (Auto) 0.7 Monocytes # (Auto) 0.5 Eosinophils # (Auto) 0.1 Basophils # (Auto) 0.0 CBC Comment DIFF FINAL Differential Comment Prothrombin Time 11.2 Prothromb Time International Ratio 1.1 Activated Partial Thromboplast Time 28.3 Blood Urea Nitrogen 28 Creatinine 1.63 Random Glucose 81 Total Protein 7.8 Albumin 3.1 Calcium Level 9.1 Alkaline Phosphatase 76 Aspartate Amino Transf (AST/SGOT) 39 Alanine Aminotransferase (ALT/SGPT) 19 Total Bilirubin 0.8 Sodium Level 140 Potassium Level 3.5 Chloride Level 106 Carbon Dioxide Level 22.9 Anion Gap 11 Estimat Glomerular Filtration Rate 41 Result Diagram: 08/21/1794408/21/17944 Imaging Last 24 hours Impressions Hip and Pelvis X-Ray 08/21/17936 Signed Impressions: Service Date/Time: Monday, August 21, 2017 10:00 - CONCLUSION: Acute left a basi-cervical/intertrochanteric fracture of the left hip Old left superior inferior pubic rami fractures with apparent pseudoarthrosis of the superior pubic ramus. Dionisio Lane MD Chest X-Ray 08/21/17936 Signed Impressions: Service Date/Time: Monday, August 21, 2017 10:00 - CONCLUSION: No acute disease. Dionisio Lane MD Head CT 08/21/17 0000 Signed Impressions: Service Date/Time: Monday, August 21, 2017 10:10 - CONCLUSION: 1. Acute large right-sided subdural hematoma with 5 mm of midline shift. 2. Small right-sided parafalcine subdural hematoma. 3. No evidence of parenchymal hemorrhage, edema or infarct. Dionisio Lane MD Assessment & Plan Assessment and Plan 82-year-old gentleman with closed left intertrochanteric/basicervical femur fracture. In addition, patient does have subdural hematoma with midline shift. Options of management were discussed with the patient and his . At this time I would recommend intramedullary nail of his left intertrochanteric/ basicervical femur fracture. Risks of surgery including but not limited to: Infection, nonunion or malunion, hardware malposition or failure, neurovascular injury, possible need for further surgery, and other unforeseen consultations were discussed with the patient. Patient's has consented to the procedure. At this time, I do await clearance from neurosurgery along with the trauma team. Patient is on blood thinners with a head bleed. He will require repeat CT prior to proceeding with surgery. I did discuss this with the patient and his family regarding the fact that his surgery could be delayed at least 1 if not several days pending his clearance. Stacie Calero MD Aug 21, 2017 18:50
[2017-08-21] MEDS: MORPHINE SULFATE 2 MG/ML INJ IV PUSH PRN (20:00)
[2017-08-21] MEDS: ISOSORBIDE MONONITRATE 20 MG TAB PO SCH (20:00)
[2017-08-21] MEDS: FAMOTIDINE 20 MG/2 ML VIAL IV PUSH SCH (20:00)
[2017-08-21] MEDS: DOCUSATE SODIUM 50 MG/SENNA 8.6 MG TAB PO SCH (20:01)
[2017-08-21] MEDS: INSULIN DETEMIR 100 UNITS/ML VIAL SQ SCH (20:01)
[2017-08-21] MEDS: METOPROLOL TARTRATE 50 MG TAB PO SCH (20:01)
[2017-08-21] MEDS ORDERED: INSULIN DETEMIR 100 UNITS/ML VIAL SQ SCH (21:00)
[2017-08-21] MEDS ORDERED: ATORVASTATIN 80 MG TAB PO SCH (21:00)
[2017-08-21 23:08] LABS: BILIRUBIN, URINE NEG (NEG); BLOOD, URINE LARGE (NEG); GLUCOSE,URINE NEG (NEG); HYALINE CAST, URINE 2 /lpf (RARE); KETONE, URINE 40 mg/dL (NEG); MUCUS URINE FEW /lpf (OCC); NITRITE,URINE NEG (NEG); PH, URINE 5.5 (5.0-8.5); SQUAMOUS EPITHELIAL CELL URINE 1 /hpf (0-5); URINE COLOR YELLOW (YELLW/STRAW); URINE LEUKOCYTE ESTERASE SMALL (NEG)
[2017-08-22] VITALS (11 sets, daily range): BP systolic 115–170; BP diastolic 58–82; PULSE 84–98; RESP 15–28; TEMP 97.8–100.7; O2SAT 92–97
[2017-08-22] MEDS: INSULIN ASPART SUPPLEMENTAL SCALE SQ SCH ×4 (03:30→15:30)
[2017-08-22] MEDS ORDERED: CHLORHEXIDINE GLUCONATE 2 % 1 PACK (2 CLOTHS) TOP SCH (04:00)
[2017-08-22] MEDS: MORPHINE SULFATE 2 MG/ML INJ IV PUSH PRN ×3 (04:09→19:09)
[2017-08-22 04:44] LABS: AUTOMATED NEUTROPHIL # 6.9 TH/MM3 (1.8-7.7); BASOPHIL # 0.1 TH/MM3 (0-0.2); BASOPHIL % 0.7 % (0.0-2.0); EOSINOPHIL # 0.2 TH/MM3 (0-0.4); EOSINOPHIL % 2.1 % (0.0-4.0); HEMATOCRIT 30.7 % (39.0-51.0); HEMOGLOBIN 10.5 GM/DL (13.0-17.0); LYMPH % 8.9 % (9.0-44.0); LYMPHOCYTE # 0.8 TH/MM3 (1.0-4.8); MEAN CELL VOLUME 84.3 FL (80.0-100.0); MEAN CORPUSCULAR HEMOGLOBIN 28.9 PG (27.0-34.0); MEAN CORPUSCULAR HGB CONC 34.2 % (32.0-36.0); MEAN PLATELET VOLUME 8.7 FL (7.0-11.0); MONO % 6.7 % (0.0-8.0); MONOCYTE # 0.6 TH/MM3 (0-0.9); NEUT % 81.6 % (16.0-70.0); PLATELET COUNT 152 TH/MM3 (150-450); RED BLOOD COUNT 3.64 MIL/MM3 (4.50-5.90); RED CELL DISTRIBUTION WIDTH 14.8 % (11.6-17.2); WHITE BLOOD COUNT 8.4 TH/MM3 (4.0-11.0)
[2017-08-22 05:09] LABS: BICARBONATE 22.1 MEQ/L (21.0-32.0); CALCIUM 8.8 MG/DL (8.5-10.1); CREATININE 1.44 MG/DL (0.60-1.30); MAGNESIUM 2.1 MG/DL (1.5-2.5); PHOSPHORUS 3.1 MG/DL (2.5-4.9)
[2017-08-22] MEDS: FAMOTIDINE 20 MG/2 ML VIAL IV PUSH SCH (09:00)
[2017-08-22] MEDS: DOCUSATE SODIUM 50 MG/SENNA 8.6 MG TAB PO SCH (09:00)
[2017-08-22] MEDS: INSULIN DETEMIR 100 UNITS/ML VIAL SQ SCH (09:00)
[2017-08-22] MEDS: ISOSORBIDE MONONITRATE 20 MG TAB PO SCH (09:00)
[2017-08-22] MEDS: METOPROLOL TARTRATE 50 MG TAB PO SCH (09:00)
--- NOTE | 2017-08-22 11:55 | HHI.CCPN ---
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 Difficulty walking today. In ED he has a moderate-large right traumatic SDH with subfalcine shift away and a closed fracture of the left hip. Neurological exam is complicated by chronic dementia. Care is complicated by long-term insulin dependent diabetes and critical calcific aortic stenosis. 08/22: Remains lethargic. CT head pending today. Family wants DNR status, comfort care. They are deciding on whether hospice will be helpful to them. Objective Vital Signs Date Time Temp Pulse Resp B/P (MAP) Pulse Ox O2 Delivery O2 Flow Rate FiO2 08/22/17 10:00 85 08/22/17 08:00 98.0 15 163/71 (101) 93 08/22/17 07:46 21 08/22/17 07:00 Room Air Intake and Output 08/22/17 08/22/17 08/23/17 08:00 16:00 00:00 Output Total 300 ml Balance -300 ml Result Diagram: 08/22/17 0415 08/22/17 0415 Objective Remarks Gen: Responsive, cooperative. Head: Normal. Tender left side skull. Neck: Chronically stiff, airway widely patent. Snoring intermittenly. Lungs: Clear, no adventitious sounds. Comfortable. Heart: NL S1S2, 4/6 systolic murmur radiates to both carotids. No JVD. Abdomen: Soft, no guarding. nontender. BS active. Extremities: Well perfused. Left hip tender to palpation, left foot externally rotated. Neuro: Moves 4 limbs to stimulation. Stubborn but responds to voice most times. Pupils 2 mm, reactive. EOM intact. Speech clear. A/P Problem List: (1) Traumatic subdural hematoma ICD Code: S06.5X9A - Traumatic subdural hemorrhage with loss of consciousness of unspecified duration, initial encounter Status: Acute (2) Closed fracture of left hip requiring operative repair ICD Code: S72.002A - Fracture of unspecified part of neck of left femur, initial encounter for closed fracture (3) Aortic stenosis, severe ICD Code: I35.0 - Nonrheumatic aortic (valve) stenosis Status: Chronic Permanent Comment: Peak gradient 76 mm Hg, mean gradient 46, area 0.64 cm square Last Edited By: Royce Torres on Aug 21, 2017 14:00 (4) Diabetes mellitus type 2 with complications ICD Code: E11.8 - Type 2 diabetes mellitus with unspecified complications Status: Chronic (5) Coronary artery disease ICD Code: I25.10 - Atherosclerotic heart disease of [place] coronary artery without angina pectoris Status: Chronic Assessment and Plan Assessment: 1. Traumatic SDH. 2. Closed fracture left hip 3. Diabetes, 2, insulin dependent. 4. Dementia 5. Critical Calcific Aortic Stenosis (Peak gradient 76, mean 46, area 0.64 cm square)) Plan: 1. ICU. 2. Platelets for ongoing bleeding. 3. No chemical DVT px. 4. Pepcid. 5. SCDs. 6. Neuro checks. 7. Neurosurgery Consult. 8. BP < 160/100 9. NPO excepts meds, sips water. 10. Levemir bid and SSI. 11. Immobilize left hip. 12. Avoid hypotension. 13. ? Hospice Overall impression: Patient is critically ill with a potentially life- threatening head injury, complicated by his dual antiplatelet therapy and an acute fracture of the left hip. Severe aortic stenosis adds considerable risk to any procedure. Family leaning toward comfort care. Now is DNR status. Problem Qualifiers (1) Traumatic subdural hematoma: Qualified Codes: S06.5X0A - Traumatic subdural hemorrhage without loss of consciousness, initial encounter (2) Closed fracture of left hip requiring operative repair: Qualified Codes: S72.002A - Fracture of unspecified part of neck of left femur , initial encounter for closed fracture (3) Diabetes mellitus type 2 with complications: Qualified Codes: E11.8 - Type 2 diabetes mellitus with unspecified complications (4) Coronary artery disease: Qualified Codes: I25.118 - Atherosclerotic heart disease of [place] coronary artery with other forms of angina pectoris Bijan Torres MD Aug 22, 2017 11:55
[2017-08-22] MEDS: SODIUM CHLOR 0.9% 1000 ML INJ 1,000 ML IV SCH (12:00)
[2017-08-22] MEDS ORDERED: cefTRIAXone INJ 1,000 MG in SODIUM CHLORIDE 0.9% INJ 100 ML IV SCH (13:00)
--- NOTE | 2017-08-22 17:21 | HHI.DS ---
Discharge Summary Admission Date Aug 21, 2017 at 12:45 Admitting Diagnosis Traumatic Subdural Hematoma (1) Traumatic subdural hematoma ICD Code: S06.5X9A - Traumatic subdural hemorrhage with loss of consciousness of unspecified duration, initial encounter Diagnosis: Principal Status: Acute (2) Closed fracture of left hip requiring operative repair ICD Code: S72.002A - Fracture of unspecified part of neck of left femur, initial encounter for closed fracture Diagnosis: Principal (3) Diabetes mellitus type 2 with complications ICD Code: E11.8 - Type 2 diabetes mellitus with unspecified complications Diagnosis: Secondary Status: Chronic (4) Coronary artery disease ICD Code: I25.10 - Atherosclerotic heart disease of [place] coronary artery without angina pectoris Diagnosis: Secondary Status: Chronic (5) DM (diabetes mellitus) ICD Code: E11.9 - Type 2 diabetes mellitus without complications Diagnosis: Secondary Status: Acute Brief History 82 y/o man on ASA and Plavix for CAD and stent fell and hit his head last night. Difficulty walking today. In ED he has a moderate-large right traumatic SDH with subfalcine shift away and a closed fracture of the left hip. Neurological exam is complicated by chronic dementia. Care is complicated by long-term insulin dependent diabetes and critical calcific aortic stenosis. CBC/BMP: 08/22/17 0415 08/22/17 0415 Significant Findings Laboratory Tests Test 08/21/17 09:45 08/21/17 22:15 08/22/17 04:15 Red Blood Count 3.61 MIL/MM3 (4.50-5.90) 3.64 MIL/MM3 (4.50-5.90) Hemoglobin 10.6 GM/DL (13.0-17.0) 10.5 GM/DL (13.0-17.0) Hematocrit 30.2 % (39.0-51.0) 30.7 % (39.0-51.0) Neutrophils (%) (Auto) 86.4 % (16.0-70.0) 81.6 % (16.0-70.0) Lymphocytes (%) (Auto) 7.0 % (9.0-44.0) 8.9 % (9.0-44.0) Neutrophils # (Auto) 8.3 TH/MM3 (1.8-7.7) Lymphocytes # (Auto) 0.7 TH/MM3 (1.0-4.8) 0.8 TH/MM3 (1.0-4.8) Blood Urea Nitrogen 28 MG/DL (7-18) 23 MG/DL (7-18) Creatinine 1.63 MG/DL (0.60-1.30) 1.44 MG/DL (0.60-1.30) Albumin 3.1 GM/DL (3.4-5.0) Aspartate Amino Transf (AST/SGOT) 39 U/L (15-37) Estimat Glomerular Filtration Rate 41 ML/MIN (>89) 47 ML/MIN (>89) Urine Turbidity HAZY (CLEAR) Urine Protein 100 mg/dL (NEG-TRACE) Urine Ketones 40 mg/dL (NEG) Urine Occult Blood LARGE (NEG) Urine Leukocyte Esterase SMALL (NEG) Urine WBC 66 /hpf (0-5) Urine Mucus FEW /lpf (OCC) Chloride Level 109 MEQ/L (98-107) Imaging CT head: Large SDH left PE at Discharge Stuporous. Transfer Summary Family has elected for Hospice Care. 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 Difficulty walking today. In ED he has a moderate-large right traumatic SDH with subfalcine shift away and a closed fracture of the left hip. Neurological exam is complicated by chronic dementia. Care is complicated by long-term insulin dependent diabetes and critical calcific aortic stenosis. 08/22: Remains lethargic. CT head pending today. Family wants DNR status, comfort care. They are deciding on whether hospice will be helpful to them. Pt Condition on Discharge: Deteriorating Discharge Disposition: Hospice/Med Facility Discharge Instructions DIET: Follow Instructions for: As Tolerated, No Restrictions Activities you can perform: Non Weight Bearing Bijan Torres MD Aug 22, 2017 17:21
[2017-08-22] MEDS ORDERED: FAMOTIDINE 20 MG/2 ML VIAL IV PUSH SCH (21:00)
== END 2017-08-22 19:40 | disposition hospice, inpatient (51) | DRG 965 ==
LOC: NEPE 09:25 → NEDA 12:45 → N03B 13:13
PROVIDERS: ADMIT Surgery Surgical Critical Care; ATTEND Surgery Surgical Critical Care
DX: S06.5X0A Traumatic subdural hemorrhage without loss of consciousness, initial encounter (principal); S72.142A Displaced intertrochanteric fracture of left femur, initial encounter for closed fracture; S32.599A Other specified fracture of unspecified pubis, initial encounter for closed fracture; F03.90 Unspecified dementia, unspecified severity, without behavioral disturbance, psychotic disturbance, mood disturbance, and anxiety; I70.0 Atherosclerosis of aorta; I35.0 Nonrheumatic aortic (valve) stenosis; J44.9 Chronic obstructive pulmonary disease, unspecified; K21.9 Gastro-esophageal reflux disease without esophagitis; I10 Essential (primary) hypertension; E11.8 Type 2 diabetes mellitus with unspecified complications; I25.10 Atherosclerotic heart disease of native coronary artery without angina pectoris; E78.00 Pure hypercholesterolemia, unspecified; W19.XXXA Unspecified fall, initial encounter; Y92.009 Unspecified place in unspecified non-institutional (private) residence as the place of occurrence of the external cause; Z51.5 Encounter for palliative care; Z66 Do not resuscitate; Z79.4 Long term (current) use of insulin; Z87.891 Personal history of nicotine dependence; Z88.7 Allergy status to serum and vaccine; Z91.012 Allergy to eggs; Z95.5 Presence of coronary angioplasty implant and graft
CPT/HCPCS: 70450; 71045; 73502; 80048; 80053; 81001; 82948; 83735; 84100; 85025; 85610; 85730; 86403; 86850; 86900; 86901; 87077; 87086; 87186; 87641; 93005; 96374; 96375; J0360; J0696; J2270; J2405; J7030